=== PATIENT | male | born 1935 | race Caucasian/White ===

== ENCOUNTER 2017-03-30 06:59 | Emergency (ER) | payer MEDICARE, BC ==
[2017-03-30] MEDS ORDERED: RX INFO: IV CONTRAST WAS GIVEN 1 EACH MISC MISCELLANE PRN (07:40)
[2017-03-30] MEDS ORDERED: SODIUM CHLORIDE 0.9% 1,000 ML IV STA (07:40)
[2017-03-30] MEDS ORDERED: SODIUM CHLORIDE 0.9% 500 ML IV STA (07:40)
[2017-03-30] MEDS ORDERED: MORPHINE SULFATE 4 MG/ML SYRINGE IV STA (07:40)
[2017-03-30] MEDS ORDERED: ONDANSETRON 4 MG/2 ML VIAL IVP STA (08:06)
[2017-03-30 08:15] LABS: Basophils % (A) 0 %; Eosinophils # (A) 0.1 k/uL (0-0.7); Eosinophils % (A) 1 %; HCT 43.2 % (39.0-53.0); HGB 14.3 gm/dL (13.0-17.5); Lymphocytes # (A) 1.1 k/uL (1.0-4.8); Lymphocytes % (A) 12 %; MCH 30.8 pg (25.0-35.0); MCHC 33.1 g/dL (31.0-37.0); Mean Platelet Volume 7.8; Monocytes # (A) 0.4 k/uL (0-1.0); Monocytes % (A) 5 %; Neutrophils # (A) 6.9 k/uL (1.3-7.7); Neutrophils % (A) 80 %; Platelet Count 152 k/uL (150-450); RBC 4.64 m/uL (4.30-5.90); RDW 13.5 % (11.5-15.5); WBC 8.6 k/uL (3.8-10.6)
[2017-03-30 08:32] LABS: ALT 62 U/L (21-72); AST 57 U/L (17-59); Albumin 4.1 g/dL (3.5-5.0); Alkaline Phosphatase 77 U/L (38-126); Amylase 56 U/L (30-110); Anion Gap 11 mmol/L; Blood Urea Nitrogen 18 mg/dL (9-20); Calcium 10.3 mg/dL (8.4-10.2); Carbon Dioxide 23 mmol/L (22-30); Chloride 107 mmol/L (98-107); Glucose 193 mg/dL (74-99); Lipase 173 U/L (23-300); Potassium 4.7 mmol/L (3.5-5.1); Sodium 141 mmol/L (137-145); Total Bilirubin 0.5 mg/dL (0.2-1.3); Total Protein 7.4 g/dL (6.3-8.2)
--- NOTE | 2017-03-30 09:22 | ED ---
General Adult HPI - General Chief complaint: Abdominal Pain Stated complaint: abd sharp pain left side Time Seen by Provider: 03/30/17 07:19 Source: patient, family, RN notes reviewed, old records reviewed Mode of arrival: ambulatory Limitations: no limitations - History of Present Illness Initial comments: This is a 41-year-old male to the ER for evaluation. This patient presents for evaluation regards to abdominal pain. Patient has no surgical history, no history of similar abdominal pain. Patient awoke with abdominal pain today lasted about pain sided flank pain radiating to anterior abdomen. Periumbilical area. Patient's mildly nauseous no vomiting no diarrhea no difficulty with bowel movements. Patient denies fever. Patient had no pain last night pain is better now than it was was started - Related Data Home Medications Medication Instructions Recorded Confirmed Aspirin 325 mg PO HS 03/30/17 03/30/17 Insulin Aspart [NovoLOG 20 unit SQ AC-TID 03/30/17 03/30/17 (formulary)] Insulin Detemir [Levemir] 80 unit SQ HS 03/30/17 03/30/17 Lisinopril [Zestril] 20 mg PO DAILY 03/30/17 03/30/17 Multivit-Min/FA/Lycopen/Lutein 1 tab PO DAILY 03/30/17 03/30/17 [Centrum Silver Tablet] Mupirocin 2% Nasal Oint [Bactroban 1 applic EA NOSTRIL BID PRN 03/30/17 03/30/17 2% Nasal Oint] Simvastatin [Zocor] 20 mg PO HS 03/30/17 03/30/17 diphenhydrAMINE [Benadryl] 25 mg PO BID 03/30/17 03/30/17 glipiZIDE [Glucotrol] 10 mg PO AC-BID 03/30/17 03/30/17 metFORMIN HCL 1,000 mg PO BID 03/30/17 03/30/17 Allergies Allergy/AdvReac Type Severity Reaction Status Date / Time No Known Allergies Allergy Verified 03/30/17 08:35 Review of Systems ROS Statement: Those systems with pertinent positive or pertinent negative responses have been documented in the HPI. ROS Other: All systems not noted in ROS Statement are negative. Past Medical History Past Medical History: Diabetes Mellitus, Hypertension History of Any Multi-Drug Resistant Organisms: None Reported Past Surgical History: Orthopedic Surgery Past Psychological History: No Psychological Hx Reported Smoking Status: Never smoker Past Alcohol Use History: None Reported Past Drug Use History: None Reported General Exam Limitations: no limitations General appearance: alert, in no apparent distress Head exam: Present: atraumatic, normocephalic, normal inspection Eye exam: Present: normal appearance, PERRL, EOMI. Absent: scleral icterus, conjunctival injection, periorbital swelling ENT exam: Present: normal exam, mucous membranes moist Neck exam: Present: normal inspection. Absent: tenderness, meningismus, lymphadenopathy Respiratory exam: Present: normal lung sounds bilaterally. Absent: respiratory distress, wheezes, rales, rhonchi, stridor Cardiovascular Exam: Present: regular rate, normal rhythm, normal heart sounds. Absent: systolic murmur, diastolic murmur, rubs, gallop, clicks GI/Abdominal exam: Present: soft, distended, tenderness (LLQ epigasttric), normal bowel sounds. Absent: guarding, rebound, rigid Extremities exam: Present: normal inspection, full ROM, normal capillary refill. Absent: tenderness, pedal edema, joint swelling, calf tenderness Back exam: Present: normal inspection Neurological exam: Present: alert, oriented X3, CN II-XII intact Psychiatric exam: Present: normal affect, normal mood Skin exam: Present: warm, dry, intact, normal color. Absent: rash Course Vital Signs 03/30/17 03/30/17 03/30/17 07:01 08:37 09:14 Temperature 97.3 F L Pulse Rate 83 76 72 Respiratory 18 18 18 Rate Blood Pressure 193/84 180/83 166/74 O2 Sat by Pulse 97 94 L 93 L Oximetry 03/30/17 10:08 Temperature Pulse Rate 69 Respiratory 19 Rate Blood Pressure 161/77 O2 Sat by Pulse 95 Oximetry - Reevaluation(s) Reevaluation #1: 03/30/17 09:30 Patient's this point does have good pain control Reevaluation #2: 03/30/17 10:30 Patient having episodic pain at this time, he does feel better when he first arrived. No significant nausea vomiting Medical Decision Making - Medical Decision Making 81 male with nonspecific abdominal pain. Abdominal wall tenderness. Patient has no pain control. Lab values are normal CT abdomen pelvis is negative and patient can be discharged home - Lab Data Result diagrams: 03/30/17 07:47 03/30/17 07:47 Lab Results 03/30/17 03/30/17 03/30/17 Range/Units 07:47 07:47 07:47 WBC 8.6 (3.8-10.6) k/uL RBC 4.64 (4.30-5.90) m/uL Hgb 14.3 (13.0-17.5) gm/dL Hct 43.2 (39.0-53.0) % MCV 93.0 (80.0-100.0) fL MCH 30.8 (25.0-35.0) pg MCHC 33.1 (31.0-37.0) g/dL RDW 13.5 (11.5-15.5) % Plt Count 152 (150-450) k/uL Neutrophils % 80 % Lymphocytes % 12 % Monocytes % 5 % Eosinophils % 1 % Basophils % 0 % Neutrophils # 6.9 (1.3-7.7) k/uL Lymphocytes # 1.1 (1.0-4.8) k/uL Monocytes # 0.4 (0-1.0) k/uL Eosinophils # 0.1 (0-0.7) k/uL Basophils # 0.0 (0-0.2) k/uL Sodium 141 (137-145) mmol/L Potassium 4.7 (3.5-5.1) mmol/L Chloride 107 (98-107) mmol/L Carbon Dioxide 23 (22-30) mmol/L Anion Gap 11 mmol/L BUN 18 (9-20) mg/dL Creatinine 1.32 H (0.66-1.25) mg/dL Est GFR (MDRD) Af Amer >60 (>60 ml/min/1.73 sqM) Est GFR (MDRD) Non-Af 52 (>60 ml/min/1.73 sqM) Glucose 193 H (74-99) mg/dL Plasma Lactic Acid Eliud 1.8 (0.7-2.0) mmol/L Calcium 10.3 H (8.4-10.2) mg/dL Total Bilirubin 0.5 (0.2-1.3) mg/dL AST 57 (17-59) U/L ALT 62 (21-72) U/L Alkaline Phosphatase 77 (38-126) U/L Troponin I (0.000-0.034) ng/mL Total Protein 7.4 (6.3-8.2) g/dL Albumin 4.1 (3.5-5.0) g/dL Amylase 56 (30-110) U/L Lipase 173 (23-300) U/L Blood Type Blood Type Recheck Antibody Screen Spec Expiration Date 03/30/17 03/30/17 Range/Units 07:47 07:47 WBC (3.8-10.6) k/uL RBC (4.30-5.90) m/uL Hgb (13.0-17.5) gm/dL Hct (39.0-53.0) % MCV (80.0-100.0) fL MCH (25.0-35.0) pg MCHC (31.0-37.0) g/dL RDW (11.5-15.5) % Plt Count (150-450) k/uL Neutrophils % % Lymphocytes % % Monocytes % % Eosinophils % % Basophils % % Neutrophils # (1.3-7.7) k/uL Lymphocytes # (1.0-4.8) k/uL Monocytes # (0-1.0) k/uL Eosinophils # (0-0.7) k/uL Basophils # (0-0.2) k/uL Sodium (137-145) mmol/L Potassium (3.5-5.1) mmol/L Chloride (98-107) mmol/L Carbon Dioxide (22-30) mmol/L Anion Gap mmol/L BUN (9-20) mg/dL Creatinine (0.66-1.25) mg/dL Est GFR (MDRD) Af Amer (>60 ml/min/1.73 sqM) Est GFR (MDRD) Non-Af (>60 ml/min/1.73 sqM) Glucose (74-99) mg/dL Plasma Lactic Acid Eliud (0.7-2.0) mmol/L Calcium (8.4-10.2) mg/dL Total Bilirubin (0.2-1.3) mg/dL AST (17-59) U/L ALT (21-72) U/L Alkaline Phosphatase (38-126) U/L Troponin I <0.012 (0.000-0.034) ng/mL Total Protein (6.3-8.2) g/dL Albumin (3.5-5.0) g/dL Amylase (30-110) U/L Lipase (23-300) U/L Blood Type A Negative Blood Type Recheck A Neg Antibody Screen NEGATIVE Spec Expiration Date 04/02/2017 - 7533 - Radiology Data Radiology results: report reviewed (CT abdomen pelvis is negative for acute disease), image reviewed Disposition Clinical Impression: Abdominal pain Disposition: HOME SELF-CARE Condition: Good Instructions: Abdominal Pain (ED) Referrals: Arjun Moss DO [Primary Care Provider] - 1-2 days
--- NOTE | 2017-03-30 09:25 | CT ---
EXAMINATION TYPE: CT abdomen pelvis w con DATE OF EXAM: 03/30/2017 COMPARISON: NONE INDICATION: Left sided abdominal pain DLP: 2986.4 mGycm, Automated exposure control for dose reduction was used. CONTRAST: 50 mL of Visipaque 320. Study performed without Oral Contrast TECHNIQUE: Axial images were obtained from above the diaphragm to the pubic rami in the axial plane a t 5 mm thick sections. Reconstructed images are reviewed on the computer in the coronal plane. FINDINGS: Limited CT sections are obtained the lung bases. The lung bases are clear. Coronary artery calcific ations present. CT ABDOMEN: Liver: Normal Spleen: Normal Pancreas: Normal Adrenal glands: The adrenal glands are normal. Gallbladder: There is a gallstone within the gallbladder. Kidneys: No masses are evident. No hydronephrosis is present. There is a 1.8 cm cyst measuring 14 H [place] units posterior mid left kidney. A 1.5 cm cyst on the posterior lateral inferior left kidne y measuring 13 Hounsfield units. There is a cyst like area measuring 1.3 cm on the mid anterior later al right kidney measuring 18 Hounsfield units. Borders are indistinct and this cannot be classified a s a simple cyst. Static cyst within the posterior right upper pole measuring 3.2 cm and 20 Hounsfield units. There is a 2.1 cm hypodensity measuring 50 Hounsfield units posterior lateral medial inferior pole ri ght kidney. Mass is not excluded. Additional evaluation with ultrasound is recommended. This area may be developing from 2013. Delayed images were obtained through the kidneys, which remain unremarkabl e. Aorta: Vascular calcification is within the aorta. Inferior vena cava: Normal. CT PELVIS: Loops of bowel within the abdomen and pelvis are normal. Diverticular changes are through the sig moid colon. Studies without oral contrast limiting the evaluation. Appendix: Normal as visualized. Urinary bladder: Normal. Genitourinary structures: Prostate is prominent. Calcifications are present. Osseous structures: No suspicious lytic or sclerotic lesions. IMPRESSIONS: 1. Multiple bilateral renal cysts. Some of these cannot be classified as simple cysts. Consider stefany tional evaluation with retroperitoneal ultrasound. 2. Possible mass which may be developing from 2014 inferior medial right kidney. Additional workup wi th ultrasound is recommended. 3. Cholelithiasis.
[2017-03-30] MEDS ORDERED: ACETAMINOPHEN IV (For NPO) 1,000 MG in EMPTY BAG 1 BAG IVPB STA (10:29)
[2017-03-30] MEDS ORDERED: HYDROmorphone 0.5 MG/0.5 ML SYRINGE IVP STA (10:29)
[2017-03-30 10:34] LABS: Appearance,Urine Clear (Clear); Bilirubin,Urine Negative (Negative); Blood,Urine Small (Negative); Color,Urine Yellow; Glucose,Urine (UA) Negative (Negative); Ketones,Urine Negative (Negative); Leukocyte Esterase,Urine Negative (Negative); Mucus,Urine Rare /hpf; Nitrite,Urine Negative (Negative); PH, Urine 5.5 (5.0-8.0); Protein,Urine Trace (Negative); RBC,Urine 8 /hpf (0-5); Urobilinogen,Urine <2.0 mg/dL (<2.0); WBC,Urine 5 /hpf (0-5)
[2017-03-30 12:03] VITALS: BP 162/73; PULSE 73; RESP 18; TEMP 98.5
== END 2017-03-30 12:03 | disposition home or self-care (01) ==
LOC: EC 06:59
DX: R10.33 Periumbilical pain (principal); R14.0 Abdominal distension (gaseous); R11.0 Nausea; I10 Essential (primary) hypertension; E11.9 Type 2 diabetes mellitus without complications; Z79.4 Long term (current) use of insulin; Z79.82 Long term (current) use of aspirin; Z79.899 Other long term (current) drug therapy
CPT/HCPCS: 36415; 86900; 86901; 80053; 82150; 83605; 83690; 84484; 85025; 86850; 81001; 87070; 87086; 74177; 99284; 96374; 96375 ×3; 96361 ×4; J2270; Q9967; J2405; J0131; J1170

== ENCOUNTER → 2017-04-04 | Outpatient (CLI) | payer MEDICARE, BC ==
[2017-04-04 14:32] LABS: INR 1.1 (<1.2); Partial Thromboplastin Time 24.1 sec (22.0-30.0); Prothrombin Time 10.4 sec (9.0-12.0)
== END | disposition home or self-care (01) ==
LOC: LABWHC1 13:50
PROVIDERS: ATTEND Orthopaedic Surgery
DX: Z01.812 Encounter for preprocedural laboratory examination (principal); Z79.01 Long term (current) use of anticoagulants
CPT/HCPCS: 36415; 85610; 85730; 86850; 86900; 86901

== ENCOUNTER 2017-04-09 05:41 | Inpatient (IN) | payer MEDICARE, BC ==
[2017-04-03 11:24] VITALS: BMI 36.6
--- NOTE | 2017-04-08 15:47 | HP ---
HISTORY AND PHYSICAL Surgery scheduled for 03/25/2017 Zelalem Jeffries is a 81-year-old patient seen with symptomatic right hip osteoarthritis. After having treatment options discussed, he elected to proceed with direct anterior right total hip arthroplasty. Consent regarding procedure was obtained. Medical clearance provided by Dr. Arjun Moss. PAST MEDICAL HISTORY: [id number] diabetes, hypertension, hyperlipidemia. PAST SURGICAL HISTORY: Bilateral total knee arthroplasty, left shoulder arthroscopy. MEDICATIONS: Glipizide, lisinopril, metformin, NovoLog, simvastatin. ALLERGIES: None reported. SOCIAL HISTORY: Patient denies current tobacco use. PHYSICAL EXAMINATION: Evaluation right hip: There is very limited range of motion with severe pain, diffuse tenderness. Positive hip impingement sign. Straight leg raise is negative. Distal neurovascular exam is intact. RADIOGRAPHS: Radiographs of the right hip revealed moderate to severe osteoarthritis. IMPRESSION: 1. Right hip osteoarthritis. 2. Insulin-dependent diabetes. 3. Hypertension. 4. Hyperlipidemia. PLAN: Direct anterior right total hip arthroplasty. MMODL / IJN: [id number] /
[~2017-04-09 05:41] MED LIST: ACETAMINOPHEN TAB 500 MG TAB PO ONE; DEXAMETHASONE SOD PHOSPHATE 10 MG/ML 1 ML VIAL IV ONE; HYDROmorphone 0.5 MG/0.5 ML SYRINGE IVP PRN; MELOXICAM 7.5 MG TAB PO ONE; ONDANSETRON 4 MG/2 ML VIAL IVP ONE; TRANEXAMIC ACID 1,000 MG in SODIUM CHLORIDE 0.9% 50 ML IVPB ONE
[2017-04-09] MEDS ORDERED: LIDOCAINE 1% 20 ML VIAL (10MG/ML) FOR IV START INTRADERMA ONE (06:35)
[2017-04-09] MEDS: LACTATED RINGERS 1,000 ML IV SCH (06:36)
[2017-04-09 06:42] LABS: Glucose,Whole Blood 90 mg/dL (75-99)
[2017-04-09] MEDS ORDERED: SODIUM CHLORIDE 0.9% 100 ML BAG ONE (07:26)
[2017-04-09] MEDS ORDERED: ePHEDrine SULFATE/0.9% NACL/PF 50 MG/5 ML SYRINGE IV ONE (07:26)
[2017-04-09] MEDS ORDERED: PROPOFOL 10 MG/ML 50 ML VIAL IV ONE (07:26)
[2017-04-09] MEDS ORDERED: TRANEXAMIC ACID 1,000 MG/10 ML VIAL ONE (07:26)
[2017-04-09] MEDS ORDERED: fentaNYL (PF) 50 MCG/ML 2 ML AMP ONE (07:26)
[2017-04-09] MEDS ORDERED: MIDAZOLAM 2 MG/2 ML VIAL ONE (07:26)
[2017-04-09] MEDS ORDERED: ROPIVACAINE 246.25 MG, EPINEPHrine 0.5 MG, KETOROLAC 30 MG, cloNIDine HCL/PF 80 MCG, WA... MISCELLANE ONE ×5 (07:54)
[2017-04-09] MEDS ORDERED: ceFAZolin 3,000 MG in SODIUM CHLORIDE 0.9% IRRIGATIO 3,000 ML IRRIGATION ONE (08:04)
[2017-04-09] MEDS ORDERED: LACTATED RINGERS 1,000 ML IV ONE (08:25)
[2017-04-09] MEDS ORDERED: ONDANSETRON 4 MG/2 ML VIAL IVP PRN (09:46)
[2017-04-09] MEDS ORDERED: HYDROcodone/APAP 7.5-325MG 1 EACH TAB PO PRN ×2 (09:46)
[2017-04-09] MEDS ORDERED: NALOXONE 0.4 MG/ML 1 ML VIAL IV PRN (09:46)
[2017-04-09] MEDS ORDERED: HYDROmorphone 0.5 MG/0.5 ML SYRINGE IVP PRN ×3 (09:46)
--- NOTE | 2017-04-09 09:46 | P.OP ---
Date of Procedure: 04/09/17 Preoperative Diagnosis: Right hip osteoarthritis Postoperative Diagnosis: Right hip osteoarthritis Procedure(s) Performed: Direct anterior right total hip arthroplasty Implants: 1. Depuy Corail KLA size 16 high offset collared press-fit femoral stem 2. Depuy pinnacle press-fit acetabular shell 62 mm 3. Depuy pinnacle polyethylene acetabular liner +4 neutral 36 mm ID 62 mm OD 4. Biolox delta ceramic femoral head +1.5 36 mm Anesthesia: local, spinal Surgeon: Dao Lassiter Compositor Apprentice #1: Shreyas Ugarte Estimated Blood Loss (ml): 200 Pathology: other (Femoral head) Condition: stable Disposition: PACU Indications for Procedure: 81-year-old patient seen with symptomatic right hip osteoarthritis. After treatment options were discussed, he elected to proceed with total hip arthroplasty. Operative Findings: see description of procedure Description of Procedure: The patient was taken to the operative suite. Patient underwent a spinal anesthetic by the department of anesthesia. Patient was then transferred to the [place] table. Patient was given preoperative IV antibiotics and TXA. Both lower extremities were placed in standard leg spars. The hip was then prepped and draped in the normal sterile orthopedic fashion. A standard anterior incision was made beginning 3 cm lateral and 1 cm distal to the ASIS extending 10 cm. Dissection was then carried down through the subcutaneous soft tissues down to the fascia overlying the tensor fascia griselda. An incision was now made through the fascia. Careful dissection was taken down exposing the tensor fascia griselda muscle. A Cobra retractor was now placed along the medial femoral neck and a second one along the lateral femoral neck. The venous circumflex vessels were now identified, cauterized and clipped. We identified the anterior hip capsule. An incision was made through the hip capsule along the lateral border. Tag sutures were then placed along the anterior capsule and lateral capsule. We then performed a capsulotomy. Retractors were now placed around the femoral neck itself. A Cobra retractor was now placed along the anterior acetabulum. Good exposure was now noted of the femoral head/neck complex. Residual labrum was debrided out. We placed the extremity into 3 turns of fine traction. We were then able to introduce a skid in between the femoral head and acetabulum. A placed a awl into the femoral head. We took 2 turns of traction off the extremity. Rotation was now released. The femoral head was then dislocated without difficulty. Additional releasing was performed of the capsule. The head was then reduced. All traction was released. A femoral neck cut was now made with a sagittal saw. It was completed with an osteotome at the lateral neck area. The femoral head was now removed without difficulty. There was advanced arthritis of both the femoral head and acetabulum. The extremity was now rotated to 60 of external rotation. It was locked in position. Residual labrum was now debrided out. Serial reaming was performed of the acetabulum. Once we reached the appropriate size and a trial was position and fit nicely. The appropriate size was now chosen opened and made available. The wound was irrigated with pulse lavage mechanical irrigation. It was introduced into the acetabulum without difficulty. The C-arm/fluoroscopy was now brought into the operative field. We made sure we had a true AP pelvic view. We now under direct C-arm/ fluoroscopy introduced into the acetabular component with appropriate version and inclination. It was well seated and stable. The C-arm was pulled back. An appropriate liner was introduced and clicked into position. It was felt to be stable. At this point retractors were removed. The extremity was now placed into 120 external rotation with no traction. The leg was now dropped to the ground and adducted. Appropriate retractors were now positioned along the proximal femur. We also placed our femoral look into position. Additional capsular releasing was performed to gain access to the proximal femur. We now used a box osteotome. A canal finder was now utilized. Serial broaching was now performed until we reached the appropriate size with good overall rotational stability. Appropriate calcar planing was performed. A trial head/ neck was placed into position. The hip was now reduced. The C-arm/fluoroscopy was brought back into the operative field. A spot film was obtained of the nonoperative hip. A spot film was obtained of the trial components. Overlays were performed, we noted good overall alignment and positioning for determining leg length. The C-arm/fluoroscopy was pulled back. Retractors were repositioned and the hip was dislocated. The leg was again taken down to the ground and adducted. Appropriate retractors were repositioned as well as the femoral hook. All trial components were removed. The femoral implant was opened along with the femoral head. The wound was irrigated with pulse lavage mechanical irrigation. The deep soft tissues were infiltrated local analgesic. The femoral implant was introduced with good purchase and fixation noted. The femoral head was introduced with good positioning and fixation noted. Retractors were now removed. The hip was now reduced. There appeared be good positioning of the hip. This was confirmed on fluoroscopy and spot films were obtained to document that. The deep soft tissues were again infiltrated with local analgesic. Bipolar cautery had been utilized intermittently through the procedure for hemostasis. The wound was irrigated copiously with pulse lavage mechanical irrigation. The fascia was repaired with Vicryl suture. The subcutaneous soft tissues were repaired in layers with Vicryl suture. The skin was approximated with pernio/Dermabond. Sterile dressings were applied. Patient was then awakened, transferred to a bed and taken to recovery in stable condition. Cecilio SAINI assisted with the procedure.
[2017-04-09 09:59] LABS: Glucose,Whole Blood 136 mg/dL (75-99)
--- NOTE | 2017-04-09 10:33 | FL ---
EXAMINATION TYPE: FL guidance operating room, XR Hip Limited RT DATE OF EXAM: 04/09/2017 CLINICAL HISTORY: Right anterior hip pain TECHNIQUE: Fluoroscopy. COMPARISON: None. FINDINGS/IMPRESSION: Fluoroscopic guidance was provided during procedure performed by Dr. Lassiter. A total of 38 seconds of fluoroscopic time was utilized during the procedure and 1 spot images was acquired during a right hip arthroplasty.
[2017-04-09] MEDS: traMADol 50 MG TAB PO SCH ×3 (12:57→22:35)
[2017-04-09] MEDS: SODIUM CHLORIDE 0.9% 1,000 ML IV SCH (17:50)
[2017-04-09] MEDS ORDERED: SENNOSIDES-DOCUSATE SODIUM 1 EACH TAB PO SCH (21:00)
[2017-04-09] MEDS ORDERED: ATORVASTATIN 10 MG TAB PO SCH (21:00)
[2017-04-09] MEDS ORDERED: INSULIN DETEMIR 100 UNIT/ML 10 ML VIAL SQ SCH (21:00)
[2017-04-09] MEDS: LISINOPRIL 20 MG TAB PO SCH (21:44)
[2017-04-09] MEDS: metFORMIN 500 MG TAB PO SCH (21:44)
[2017-04-09] MEDS: diphenhydrAMINE 25 MG CAP PO SCH (21:47)
[2017-04-10] MEDS: LACTATED RINGERS 1,000 ML IV SCH (02:57)
[2017-04-10] MEDS: SODIUM CHLORIDE 0.9% 1,000 ML IV SCH (04:14)
[2017-04-10 07:07] VITALS: BP 163/68; PULSE 82; RESP 18; TEMP 97.6
[2017-04-10 07:30] LABS: Basophils % (A) 0 %; Eosinophils # (A) 0.1 k/uL (0-0.7); Eosinophils % (A) 1 %; HCT 34.2 % (39.0-53.0); Lymphocytes # (A) 1.4 k/uL (1.0-4.8); Lymphocytes % (A) 14 %; MCH 30.1 pg (25.0-35.0); MCHC 32.5 g/dL (31.0-37.0); MCV 92.6 fL (80.0-100.0); Mean Platelet Volume 7.2; Monocytes # (A) 0.6 k/uL (0-1.0); Monocytes % (A) 6 %; Neutrophils # (A) 7.5 k/uL (1.3-7.7); Neutrophils % (A) 77 %; Platelet Count 202 k/uL (150-450); RBC 3.69 m/uL (4.30-5.90); RDW 12.6 % (11.5-15.5); WBC 9.8 k/uL (3.8-10.6)
[2017-04-10] MEDS ORDERED: glipiZIDE 10 MG TAB PO SCH (07:30)
[2017-04-10] MEDS: INSULIN ASPART 100 UNIT/ML 1 ML 10 ML VIAL SQ SCH ×2 (07:45→12:08)
[2017-04-10 07:46] LABS: Glucose,Whole Blood 79 mg/dL (75-99)
[2017-04-10] MEDS: metFORMIN 500 MG TAB PO SCH (07:46)
[2017-04-10] MEDS: LISINOPRIL 20 MG TAB PO SCH (07:46)
[2017-04-10 07:49] LABS: HGB 11.1 gm/dL (13.0-17.5)
[2017-04-10] MEDS: traMADol 50 MG TAB PO SCH ×2 (07:49→12:11)
[2017-04-10] MEDS: diphenhydrAMINE 25 MG CAP PO SCH (07:50)
[2017-04-10] MEDS ORDERED: ENOXAPARIN 40 MG/0.4 ML SYRINGE SQ SCH (09:00)
[2017-04-10] MEDS ORDERED: MELOXICAM 7.5 MG TAB PO SCH (09:00)
[2017-04-10] MEDS ORDERED: FAMOTIDINE 20 MG TAB PO SCH (09:00)
[2017-04-10 11:47] LABS: Glucose,Whole Blood 80 mg/dL (75-99)
--- NOTE | 2017-04-10 11:52 | P.PN ---
Subjective Progress Note Date: 04/10/17 Principal diagnosis: Status post right total hip arthroplasty Patient is seen today resting in his hospital chair, he appears comfortable. Patient's ambulating well with therapy. Urinary catheters been discontinued. He denies any headaches, lightheadedness, chest pain or shortness of breath. Objective - Vital Signs Vital signs: Vital Signs Temp 97.6 F 04/10/17 07:06 Pulse 82 04/10/17 07:06 Resp 18 04/10/17 07:08 BP 163/68 04/10/17 07:06 Pulse Ox 96 04/10/17 07:06 Intake & Output 04/09/17 04/10/17 04/10/17 18:59 06:59 18:59 Intake Total 1501 Output Total 200 200 Balance 1301 -200 Weight 129.274 kg 129.274 kg Intake: IV 1351 Intake, IV Titration 150 Amount Sodium Chloride 0.9% 1, 150 000 ml @ 50 mls/hr IV . Q20H RASHAD Rx#:[id number] Output: Urine 200 Estimated Blood Loss 200 Other: Voiding Method Urinal Urinal Urinal # Voids 1 1 # Bowel Movements 1 - Exam Right lower extremity: Incision is clean, dry, and intact. The prineo tape is in good condition. There is minimal soft tissue swelling and ecchymosis surrounding the medial and lateral aspects of the incision. Calf is soft, no tenderness with palpation. Plantar flexion, dorsiflexion, EHL, FHL are intact. Sensory exam to light touch throughout the extremity is intact, dorsal pedis pulses 2+. - Labs CBC & Chem 7: 04/10/17 06:34 Labs: Abnormal Lab Results - Last 24 Hours (Table) 04/10/17 Range/Units 06:34 RBC 3.69 L (4.30-5.90) m/uL Hgb 11.1 L D (13.0-17.5) gm/dL Hct 34.2 L (39.0-53.0) % Assessment and Plan Plan: Assessment: 1. Postop day #1 status post right total hip arthroplasty Plan: 1. Pain control, we'll discharge home on oral medication 2. Home therapy and nursing after discharge 3. Wound care instructions were discussed with patient 4. GI and DVT prophylaxis, aspirin 325 mg twice a day 5. Medical recommendations 6. Discharge planning: Patient will be likely discharged home today Time with Patient: Less than 30
--- NOTE | 2017-04-10 11:57 | P.DS ---
Providers Date of admission: 04/09/17 05:41 Expected date of discharge: 04/10/17 Attending physician: Dao Lassiter Consults: 04/09/17 09:46 Consult Physician Routine Consulting Provider: Arjun Moss Reason/Comments: Medical management Do you want consulting provider notified?: Yes Primary care physician: Arjun Moss [facility] Course: Date of admission: 04/09/2017 Date of discharge: 04/10/2017 Admission diagnosis: Status post right total hip arthroplasty Discharge diagnosis: Same Attending physician: Dr. Lassiter Surgical procedures: Right total hip arthroplasty Brief history: Patient is a 81-year-old male with a history of progressive primary right hip osteoarthritis. At this point patient has failed conservative treatment measures and has opted to proceed with a elective right total hip arthroplasty. Hospital course: Details of patient's surgery can be found in operative report. Patient tolerated the procedure well and was subsequently transported to orthopedic floor. Patient's orthopeidc and medical care was provided daily. Patient had daily laboratory tests performed for evaluation of overall blood counts. Patient had daily physical therapy to include strengthening range of motion as well as education with walker ambulation. Patient was treated with Lovenox for their postoperative DVT prophylaxis during their inpatient stay. Patient was noted to have a relatively uneventful postoperative course. Patient reported satisfactory pain control with oral pain medications by postoperative day 0. Patient showed satisfactory progress with physical therapy. Patient moved steadily through the program and had no difficulty meeting the goals by postoperative day 1. Given patient's otherwise satisfactory course and having met physical therapy goals, plan is to discharge patient home on postoperative day 1. Discharge condition/disposition: Patient will be discharged home in stable condition. Discharge medications: Instructions are given on resumption of patient's normal daily medications per primary care recommendation, in addition patient will be prescribed tramadol 50 mg, aspirin 325 mg, Ochope[place] 5 mg/325 mg. Discharge instructions: 1. Wound care and infection precautions, keep incision dry and covered while showering, no lotions, creams, moisturizers. No soaking, tubs, pools, hottubs. Do not scrub over the incision. 2. Weight-bear as tolerated with walker / cane until follow-up. 3. Ice and elevate when necessary. Do not exceed 20 minutes per hour with ice pack. 4. Utilize compression sleeve until seen at first follow up appointment. 5. Visiting nursing care. 6. Home physical therapy. 7. Pain meds and anticoagulants per prescription. 8. Pain medication has potential to cause constipation. Increase oral fluid and fiber intake. Contact primary care provider if you have not had a bowel movement within 48 hours after discharge 9. No anti-inflammatory medication until discussed at first post operative visit, this including Motrin, Aleve, Mobic, Diclofenac. 10. Follow up in office at 2 weeks postop with Cecilio Ugarte PA-C 11. Follow up with your primary care doctor 7-10 days after discharge. 12. Contact [facility] with any questions, . Procedures: Right total hip arthroplasty Patient Condition at Discharge: Good Plan - Discharge Summary Discharge Rx Participant: Yes New Discharge Prescriptions: New Aspirin 325 mg PO BID #60 tab Hydrocodone/Acetaminophen [[place] 5-325] 1 each PO Q6HR PRN #30 tab PRN Reason: Pain traMADol HCl [Ultram] 50 mg PO Q6H PRN #30 tab PRN Reason: Pain No Action Simvastatin [Zocor] 20 mg PO HS Insulin Detemir [Levemir] 80 unit SQ HS diphenhydrAMINE [Benadryl] 25 mg PO BID Insulin Aspart [NovoLOG (formulary)] 20 unit SQ AC-TID metFORMIN HCL 1,000 mg PO BID glipiZIDE [Glucotrol] 10 mg PO AC-BID Lisinopril [Zestril] 20 mg PO DAILY Multivit-Min/FA/Lycopen/Lutein [Centrum Silver Tablet] 1 tab PO DAILY Discharge Medication List Insulin Aspart [NovoLOG (formulary)] 20 unit SQ AC-TID 03/30/17 [History] Insulin Detemir [Levemir] 80 unit SQ HS 03/30/17 [History] Lisinopril [Zestril] 20 mg PO DAILY 03/30/17 [History] Multivit-Min/FA/Lycopen/Lutein [Centrum Silver Tablet] 1 tab PO DAILY 03/30/17 [ History] Simvastatin [Zocor] 20 mg PO HS 03/30/17 [History] diphenhydrAMINE [Benadryl] 25 mg PO BID 03/30/17 [History] glipiZIDE [Glucotrol] 10 mg PO AC-BID 03/30/17 [History] metFORMIN HCL 1,000 mg PO BID 03/30/17 [History] Aspirin 325 mg PO BID #60 tab 04/10/17 [Rx] Hydrocodone/Acetaminophen [[place] 5-325] 1 each PO Q6HR PRN #30 tab 04/10/17 [Rx] traMADol HCl [Ultram] 50 mg PO Q6H PRN #30 tab 04/10/17 [Rx] Follow up Appointment(s)/Referral(s): [facility], [NON-STAFF] - Shreyas Ugarte PAC [PHYSICIAN LIQUOR ESTABLISHMENT MANAGER] - 2 Weeks Activity/Diet/Wound Care/Special Instructions: Orthopedic Discharge Instructions: 1. Wound care and infection precautions, keep incision dry and covered while showering, no lotions, creams, moisturizers. No soaking, pools, hot tubs. Do not scrub over incision. 2. Weight-bear as tolerated with walker / cane until follow-up. 3. Ice and elevate when necessary. Do not exceed 20 minutes per hour with ice pack. 4. Utilize compression sleeve until seen at first follow up appointment. 5. Visiting nursing care. 6. Home physical therapy. 7. Pain meds and anticoagulants per prescription. 8. Pain medication has potential to cause constipation. Increase oral fluid and fiber intake. Contact primary care provider if you have not had a bowel movement within 48 hours after discharge. 9. No anti-inflammatory medication until discussed at first post operative visit, this including Motrin, Aleve, Mobic, Diclofenac 10. Follow up in office at 2 weeks postop with Cecilio Ugarte PA-C 11. Follow up with your primary care doctor 7-10 days after discharge. 12. Contact [facility] with any questions, . Discharge Disposition: HOME WITH HOME HEALTH SERVICES
== END 2017-04-10 14:22 | disposition home health service (06) | DRG 470 ==
LOC: 2ORMAIN 05:41 → 3SUR 09:40
PROVIDERS: ADMIT Orthopaedic Surgery; ATTEND Orthopaedic Surgery
PROC: 0SR904A Replacement of Right Hip Joint with Ceramic on Polyethylene Synthetic Substitute, Uncemented, Open Approach (ICD-10-PCS; principal; 2017-04-09 07:30)
DX: M16.11 Unilateral primary osteoarthritis, right hip (principal); E11.9 Type 2 diabetes mellitus without complications; E78.5 Hyperlipidemia, unspecified; I10 Essential (primary) hypertension; Z79.4 Long term (current) use of insulin; Z79.899 Other long term (current) drug therapy; Z96.653 Presence of artificial knee joint, bilateral; Z87.891 Personal history of nicotine dependence
CPT/HCPCS: 73501; 85025; 86850; 86900; 86901; 88300

== ENCOUNTER → 2017-04-13 | Outpatient (CLI) | payer MEDICARE, BC ==
--- NOTE | 2017-04-14 08:21 | US ---
EXAMINATION TYPE: US kidneys/renal and bladder DATE OF EXAM: 04/13/2017 COMPARISON: CT 2018 CLINICAL HISTORY: N28.1 RENAL CYSTS; see recent CT; post right hip replacement 04/09/2017. EXAM MEASUREMENTS: Right Kidney: 12.7 x 6.8 x 5.7 cm Left Kidney: 12.0 x 6.5 x 6.9 cm Post Void Residual Volume: 288.2 mL Right Kidney: multiple renal cysts with largest simple cyst at superior pole = 3.1 x 3.6 x 2.7cm, sma ller renal cysts appear simple but may be too small to characterize; multiple small calcifications th roughout kidney with largest at inferolateral cortex = 0.5 x 0.3 x 0.2cm . Left Kidney: mild hydronephrosis; multiple renal cysts with largest simple cyst at mid pole = 1.5 x 1 .6 x 1.6cm; superior cortical cyst = 1.4 x 1.6 x 1.3cm and may have wall calcification; calcified wal ls not identified on the comparison CT. Multiple renal calcifications noted mid pole especially with largest cluster = 0.4 x 0.3 x 0.2cm. Bladder: wnl Bilateral Jets seen: Yes Normal Post Void Residual: abnormal post void as is > 50ml. Post void volume is 288 mL. IMPRESSION: There is a cyst with abnormal wall in the superior left kidney warranting follow-up ultrasound in [address]. 2. Mild left hydronephrosis. 3. Left renal stones at the cortical medullary junction. These appear to be nonobstructing.
== END | disposition home or self-care (01) ==
LOC: RADUSWWP 15:31
PROVIDERS: ATTEND Family Medicine
DX: N28.1 Cyst of kidney, acquired (principal); N13.2 Hydronephrosis with renal and ureteral calculous obstruction
CPT/HCPCS: 76770

== ENCOUNTER 2017-05-15 15:52 | Observation (INO) | payer MEDICARE, BC ==
--- NOTE | 2017-05-15 16:07 | ED ---
General Adult HPI - General Stated complaint: RT HIP PAIN Time Seen by Provider: 05/15/17 16:07 - History of Present Illness Initial comments: Zelalem Jeffries is a 81-year-old male who presents to the emergency department via EMS for evaluation of right hip pain. Patient reports that he had an elective right hip replacement approximately 5 weeks ago, he been doing well in the postoperative period. He states that today he was standing on his porch, he felt his hip pop and fell to the ground his head, he did not lose consciousness. He immediately experienced pain in his right hip, EMS was contacted. They found the patient laying on his porch he had a shortened and internally rotated right leg, he was given 100 g of fentanyl and transported to the ER for further evaluation. Patient complains only of pain in his right hip, he has normal sensation in his right leg and foot. Full range of motion of his toes and ankle. - Related Data Home Medications Medication Instructions Recorded Confirmed Insulin Aspart [NovoLOG 22 unit SQ AC-TID 03/30/17 05/15/17 (formulary)] Insulin Detemir [Levemir] 80 unit SQ HS 03/30/17 05/15/17 Lisinopril [Zestril] 20 mg PO DAILY 03/30/17 05/15/17 Multivit-Min/FA/Lycopen/Lutein 1 tab PO DAILY 03/30/17 05/15/17 [Centrum Silver Tablet] Simvastatin [Zocor] 20 mg PO HS 03/30/17 05/15/17 diphenhydrAMINE [Benadryl] 25 mg PO BID 03/30/17 05/15/17 glipiZIDE [Glucotrol] 10 mg PO AC-BID 03/30/17 05/15/17 metFORMIN HCL 1,000 mg PO BID 03/30/17 05/15/17 Aspirin 325 mg PO HS 05/15/17 05/15/17 Ibuprofen [Motrin Ib] 200 mg PO BID PRN 05/15/17 05/15/17 Mupirocin 2% Nasal Oint [Bactroban 1 applic NASAL DAILY 05/15/17 05/15/17 2% Nasal Oint] Allergies Allergy/AdvReac Type Severity Reaction Status Date / Time No Known Allergies Allergy Verified 05/15/17 16:42 Review of Systems ROS Statement: Those systems with pertinent positive or pertinent negative responses have been documented in the HPI. ROS Other: All systems not noted in ROS Statement are negative. Past Medical History Past Medical History: Diabetes Mellitus, Hypertension Additional Past Medical History / Comment(s): recent EC for abdominal pain- tests neg, heart murmer, hx ulcer, hx skin cancer History of Any Multi-Drug Resistant Organisms: None Reported Past Surgical History: Orthopedic Surgery Additional Past Surgical History / Comment(s): rt knee replacement x 2, left knee replacement, left shoulder surgery, skin cancer removed from nose with skin graft Past Anesthesia/Blood Transfusion Reactions: No Reported Reaction Past Psychological History: No Psychological Hx Reported Smoking Status: Never smoker Past Alcohol Use History: None Reported Additional Past Alcohol Use History / Comment(s): quit smoking 25 yrs ago, smoked for 40 yrs, 1 PPD Past Drug Use History: None Reported - Past Family History Mother Family Medical History: No Reported History General Exam General appearance: alert, other (Appears uncomfortable) Head exam: Present: atraumatic, normocephalic, normal inspection Eye exam: Present: normal appearance, PERRL, EOMI. Absent: scleral icterus, conjunctival injection, periorbital swelling ENT exam: Present: normal exam, mucous membranes moist Neck exam: Present: normal inspection. Absent: tenderness, meningismus, lymphadenopathy Respiratory exam: Absent: respiratory distress Cardiovascular Exam: Present: regular rate GI/Abdominal exam: Present: soft. Absent: distended Rectal exam: Present: deferred Right Hip exam: Present: tenderness, swelling, deformity, dislocation. Absent: full ROM Upper Leg exam: Present: tenderness Knee exam: Present: full knee extension Lower Leg exam: Absent: tenderness, swelling Ankle exam: Present: normal inspection, full ROM Foot/Toe exam: Present: normal inspection, full ROM Neurovascular tendon exam: Present: no vascular compromise. Absent: pulse deficit, abnormal cap refill, sensory deficit, extremity cold to touch, pallor, foot drop Neurological exam: Present: alert, oriented X3 Psychiatric exam: Present: normal affect, normal mood Skin exam: Present: warm, dry Course Vital Signs 05/15/17 05/15/17 05/15/17 16:04 17:56 18:39 Temperature 98.6 F Pulse Rate 100 108 H 109 H Respiratory 20 20 18 Rate Blood Pressure 132/74 162/85 205/94 O2 Sat by Pulse 99 96 Oximetry 05/15/17 05/15/17 05/15/17 18:45 18:50 18:55 Temperature Pulse Rate 99 104 H 108 H Respiratory 15 18 16 Rate Blood Pressure 179/86 154/70 140/66 O2 Sat by Pulse 95 97 96 Oximetry Procedures - Procedural Sedation Procedural Sedation Start Time: 18:42 Indications: fracture/dislocation reduction Mallampati Airway Score: 3 Preparation: patient monitor applied, pulse oximeter, capnometry used, supplemental O2 applied, reversal agents at bedside, suction/airway equipment at bedside, IV secured IV Propofol Dose (mgs): 160 Complications: none Patient Tolerated Procedure: well Medical Decision Making - Medical Decision Making Patient was seen and evaluated, history was obtained from the patient, EMS and medical record Patient had a prosthetic hip on April 09 X-rays were ordered X-rays reveal a prosthetic hip dislocation - orthopedic surgery was paged Patient with persistent pain in the right hip, additional dose of IV fentanyl was ordered Patient care was discussed with Orthopedic surgery, they recommend conscious sedation in the ER they will be at bedside for reduction Dr. Corral and Cecilio SAINI at bedside Patient consciously sedated with 160 g of propofol -tolerated sedation well Dislocation reduction was successful by Dr. Corral Patient awake, answering questions, speaking clearly, at bedside, postreduction x-ray confirms successful reduction Dr. Corral accepts the patient to his service for observation for pain management with the plan to fit for a brace for the leg tomorrow Observation orders placed Disposition Clinical Impression: Posterior dislocation of hip, Dislocation of hip joint prosthesis Disposition: ADMITTED IP TO THIS [facility] Condition: Good Referrals: Arujn Moss DO [Primary Care Provider] - 1-2 days Time of Disposition: 18:56
[2017-05-15] MEDS ORDERED: fentaNYL (PF) 50 MCG/ML 2 ML AMP IV STA (17:39)
--- NOTE | 2017-05-15 18:02 | XR ---
EXAMINATION TYPE: XR knee complete RT DATE OF EXAM: 05/15/2017 CLINICAL HISTORY: Generalized pain TECHNIQUE: Three views of the right knee are obtained. COMPARISON: None. FINDINGS: There is no acute fracture/dislocation evident in right knee. Right knee arthroplasty main tains normal alignment with heterotopic ossification is seen predominantly posteriorly. Calcification s within the quadriceps musculature likely from prior injury. No evidence of periprosthetic loosening or lucency. The overlying soft tissue appears unremarkable. IMPRESSION: There is no acute fracture or malalignment in the right knee. No evidence of hardware fr acture.
--- NOTE | 2017-05-15 18:03 | XR ---
EXAMINATION TYPE: XR Hip RT and AP Pelvis DATE OF EXAM: 05/15/2017 COMPARISON: NONE HISTORY: Right hip pain and deformity TECHNIQUE: A single AP view of the pelvis is obtained. Two views of the right hip are obtained. FINDINGS: There is no acute fracture of the pelvis. The sacroiliac joints appear symmetric and unrem arkable. The overlying soft tissue appears unremarkable. Two views of right hip show no acute fracture. Cephalad and slightly posterior dislocation of the rig ht hip prosthesis is noted. No focal lytic or sclerotic lesion seen in the proximal right femur. The overlying soft tissue is unremarkable. Moderate degenerative changes of the lumbosacral junction ar e seen as well as mild/moderate left femoral acetabular arthropathy. IMPRESSION: Cephalad and slightly posterior dislocation of the right hip prosthesis.
[2017-05-15] MEDS ORDERED: SODIUM CHLORIDE 0.9% 1,000 ML IV STA (18:21)
[2017-05-15] MEDS ORDERED: PROPOFOL 10 MG/ML 20 ML VIAL IV STA (18:21)
[2017-05-15] MEDS ORDERED: ONDANSETRON 4 MG/2 ML VIAL IVP STA (18:21)
--- NOTE | 2017-05-15 18:44 | P.CNOR ---
History of Present Illness - [facility] Consult date: 05/15/17 Consult reason: other History of present illness: This is a 81-year-old male who presented to [facility] [place] on after injuring his right hip today at home. [place], was walking up his porch, felt his hip gave out and he fell to the ground. He was unable to put any weight on the leg. Patient was brought to the hospital by EMS. Upon arrival, imaging test demonstrated a dislocation of the periprosthetic right hip. No acute fractures are noted of either the hip or knee joint on the right side. Patient has a recent right total hip arthroplasty by Dr. Lassiter on 2017. Patient had been doing very well up until this point. He's been utilizing a cane with ambulation, is going to physical therapy 2-3 days a week. I personally seen the patient for his first postop visit, he was doing great, his x-ray showed stable hardware. We were contacted by the emergency room staff regarding patient, Dr. Corral my attending was available. We reported to the ER for evaluation. Patient is lying in bed comfortably, lightheadedness and shortened internally rotated. Having some pain in the right hip with any type of motion. He denied any pain involving the right knee, right foot or ankle. He denies any pain in the left lower extremity, bilateral upper extremities. Review of Systems Constitutional: Reports as per [facility] Past Medical History Past Medical History: Diabetes Mellitus, Hypertension Additional Past Medical History / Comment(s): recent EC for abdominal pain- tests neg, heart murmer, hx ulcer, hx skin cancer History of Any Multi-Drug Resistant Organisms: None Reported Past Surgical History: Orthopedic Surgery Additional Past Surgical History / Comment(s): rt knee replacement x 2, left knee replacement, left shoulder surgery, skin cancer removed from nose with skin graft Past Anesthesia/Blood Transfusion Reactions: No Reported Reaction Past Psychological History: No Psychological Hx Reported Smoking Status: Never smoker Past Alcohol Use History: None Reported Additional Past Alcohol Use History / Comment(s): quit smoking 25 yrs ago, smoked for 40 yrs, 1 PPD Past Drug Use History: None Reported - Past Family History Mother Family Medical History: No Reported History Medications and Allergies Home Medications Medication Instructions Recorded Confirmed Type Insulin Aspart [NovoLOG 22 unit SQ AC-TID 03/30/17 05/15/17 History (formulary)] Insulin Detemir [Levemir] 80 unit SQ HS 03/30/17 05/15/17 History Lisinopril [Zestril] 20 mg PO DAILY 03/30/17 05/15/17 History Multivit-Min/FA/Lycopen/Lutein 1 tab PO DAILY 03/30/17 05/15/17 History [Centrum Silver Tablet] Simvastatin [Zocor] 20 mg PO HS 03/30/17 05/15/17 History diphenhydrAMINE [Benadryl] 25 mg PO BID 03/30/17 05/15/17 History glipiZIDE [Glucotrol] 10 mg PO AC-BID 03/30/17 05/15/17 History metFORMIN HCL 1,000 mg PO BID 03/30/17 05/15/17 History Aspirin 325 mg PO HS 05/15/17 05/15/17 History Ibuprofen [Motrin Ib] 200 mg PO BID PRN 05/15/17 05/15/17 History Mupirocin 2% Nasal Oint [Bactroban 1 applic NASAL DAILY 05/15/17 05/15/17 History 2% Nasal Oint] Allergies Allergy/AdvReac Type Severity Reaction Status Date / Time No Known Allergies Allergy Verified 05/15/17 16:42 Physical Examination Right lower extremity: Incision over the anterior aspect of the right hip region is well healed, there is no semi-erythema, ecchymosis. There is some soft tissue swelling noted distal and lateral to the incision No open lesions visualized throughout the lower extremity Obvious shortening and internal rotation of the leg is noted compared to contralateral side No tenderness with palpation surrounding the knee. Patient's plantar flexion, dorsiflexion, EHL, FHL are intact Calf is soft, no tenderness with palpation, sensory exam to light touch throughout extremity is intact, dorsal pedis pulses 2+ Results - Diagnostic results Hip x-ray: report reviewed, image reviewed Assessment and Plan Plan: Imaging: X-rays were reviewed of the right hip, images demonstrate no acute fractures. Posterior dislocation noted of the right hip joint. Hardware remains stable x- rays reviewed of the right knee, no acute fractures or dislocations noted. Assessment: 1. Right periprosthetic hip dislocation 2. Recent history of right total hip arthroplasty, 04/09/2017 3. History of bilateral total knee arthroplasty Plan: Treatment plan was discussed with the patient and his today at bedside. We will attempt a closed reduction of the right hip in the emergency room. Patient is in agreement and would like to proceed. Please see procedure note for further detail. Patient will be admitted for observation and fitting of a hip abduction brace Resume home medications Weight-bear as tolerated in brace Further recommendations to follow Time with Patient: Less than 30
[2017-05-15] MEDS ORDERED: NALOXONE 0.4 MG/ML 1 ML VIAL IV PRN (18:56)
--- NOTE | 2017-05-15 19:05 | P.OP ---
Date of Procedure: 05/15/17 Preoperative Diagnosis: Right total hip arthroplasty dislocation Postoperative Diagnosis: Same Procedure(s) Performed: Closed reduction right total hip arthroplasty dislocation Anesthesia: MAC Surgeon: Shaw Corral Shipping Clerk/Admin #1: Shreyas Ugarte Estimated Blood Loss (ml): 0 Pathology: none sent Condition: stable Disposition: observation Indications for Procedure: The patient's 81-year-old male who underwent right anterior total hip arthroplasty by Dr. Lassiter 5 weeks ago presents after falling dislocating his right hip. Upon evaluation he edge foreshortening and internal rotation of his right lower extremity. A discussion of the risks and benefits of closed reduction was made with the patient and his . He opted to proceed. Risks to include recurrence of dislocation, fracture, and need for subsequent procedures was discussed. Informed consent was obtained. Operative Findings: As below Description of Procedure: The patient received propofol in the emergency room by the physician along with respiratory support. Once sufficiently anesthetized, the right total hip arthroplasty dislocation was then reduced with flexion and traction along with internal and external rotation of the right leg. A palpable reduction was noted. Post reduction x-rays showed adequate reduction of the arthroplasty. He tolerated the procedure well. He is monitored until fully awake. He was admitted for overnight observation and bracing. No complications were incurred.
--- NOTE | 2017-05-15 19:08 | XR ---
EXAMINATION TYPE: XR Hip Limited RT DATE OF EXAM: 05/15/2017 CLINICAL HISTORY: Prior right hip dislocation TECHNIQUE: Single view of the left hip is obtained COMPARISON: 05/15/2017 right hip and pelvis radiograph's FINDINGS: There is no acute fracture/dislocation evident in the right hip. Right hip arthroplasty ma intains alignment. The joint space in the right hip appears within normal limits. The overlying soft tissue appears unremarkable. IMPRESSION: Alignment is anatomic on this single view right hip radiograph.
[2017-05-15 20:30] LABS: Glucose,Whole Blood 176 mg/dL (75-99)
[2017-05-15] MEDS ORDERED: IBUPROFEN 200 MG TAB PO PRN (21:45)
[2017-05-15] MEDS ORDERED: ATORVASTATIN 10 MG TAB PO SCH (21:45)
[2017-05-15] MEDS ORDERED: INSULIN DETEMIR 100 UNIT/ML 10 ML VIAL SQ SCH (21:46)
[2017-05-15] MEDS ORDERED: IBUPROFEN 200 MG TAB PO SCH (23:00)
[2017-05-15] MEDS ORDERED: HYDROcodone/APAP 7.5-325MG 1 EACH TAB PO PRN (23:21)
[2017-05-15] MEDS ORDERED: MORPHINE ORAL SOLN 10 MG/5 ML CUP PO PRN (23:22)
[2017-05-15] MEDS: INSULIN ASPART 100 UNIT/ML 1 ML 10 ML VIAL SQ SCH (23:26)
[2017-05-15] MEDS: metFORMIN 500 MG TAB PO SCH ×2 (23:27→23:32)
[2017-05-16 06:50] VITALS: BP 181/85; PULSE 89; RESP 16; TEMP 98
[2017-05-16 07:04] LABS: Glucose,Whole Blood 179 mg/dL (75-99)
[2017-05-16] MEDS ORDERED: glipiZIDE 10 MG TAB PO SCH (07:30)
[2017-05-16] MEDS ORDERED: INSULIN ASPART 100 UNIT/ML 1 ML 10 ML VIAL SQ SCH (07:30)
[2017-05-16] MEDS: metFORMIN 500 MG TAB PO SCH (07:39)
[2017-05-16] MEDS: INSULIN ASPART 100 UNIT/ML 1 ML 10 ML VIAL SQ SCH ×4 (07:39→12:38)
[2017-05-16] MEDS ORDERED: diphenhydrAMINE 25 MG CAP PO SCH (09:00)
[2017-05-16] MEDS ORDERED: LISINOPRIL 20 MG TAB PO SCH (09:00)
[2017-05-16 11:31] LABS: Glucose,Whole Blood 211 mg/dL (75-99)
[2017-05-16] MEDS ORDERED: MULTIVITAMINS, THERA 1 EACH TAB PO SCH (12:00)
--- NOTE | 2017-05-16 13:25 | P.PN ---
Subjective Progress Note Date: 05/16/17 Principal diagnosis: Status post closed reduction right hip Patient seen today resting in his hospital bed, he appears comfortable. His is present at bedside. Patient is utilizing the hip abduction brace at this time. Therapy is present today to get patient out of bed and work on ambulation. He denies any headaches, lightheadedness, chest pain or shortness of breath. Objective - Vital Signs Vital signs: Vital Signs Temp 98 F 05/16/17 06:49 Pulse 89 05/16/17 06:49 Resp 16 05/16/17 06:49 BP 181/85 05/16/17 06:49 Pulse Ox 93 L 05/16/17 07:23 Intake & Output 05/15/17 05/16/17 05/16/17 18:59 06:59 18:59 Intake Total 240 Output Total 565 Balance -565 240 Weight 127.006 kg Intake: Oral 240 Output: Urine 565 - Exam Right lower extremity: Hip abduction brace is in good position. Logroll maneuver reproduces minimal pain in the hip joint. No significant leg length discrepancy noted. Plantar flexion, dorsiflexion, EHL, FHL is intact. Sensory exam light touch is intact of the extremity. Calf is soft, no tenderness with palpation. Dorsal pedis pulses 2+ - Labs Labs: Abnormal Lab Results - Last 24 Hours (Table) 05/15/17 05/16/17 05/16/17 Range/Units 20:13 06:56 11:21 POC Glucose (mg/dL) 176 H 179 H 211 H (75-99) mg/dL Assessment and Plan Plan: Assessment: 1. Status post closed reduction right hip Plan: Continue use of abduction brace Physical therapy to evaluate today Hold off on outpatient physical therapy at this time Plan for follow-up in [address] Maikol Alva for discharge home today Time with Patient: Less than 30
--- NOTE | 2017-05-16 13:31 | P.DS ---
Providers Date of admission: 05/15/17 18:57 Expected date of discharge: 05/16/17 Attending physician: Shaw Corral Primary care physician: Arjun Moss [facility] Course: Date of admission: 05/15/2017 Date of discharge: 05/16/2017 Admission diagnosis: Status post closed reduction right hip Discharge diagnosis: Same Attending physician: Dr. Corral Surgical procedures: Closed reduction right hip Brief history: Patient is a 81-year-old male who presented to [facility] yesterday with regards to an injury to the right hip. Patient was walking up his porch when he stepped backwards in the hip gave out, he did fall to the ground. He was unable to put weight on his right leg. EMS to bring the patient to the hospital, upon arrival imaging test demonstrated a dislocated right periprosthetic hip joint. Dr. Corral and myself with available to examine the patient in the emergency room, with the aid of the emergency room staff and respiratory, patient was given anesthesia every location procedure was done at bedside. He was admitted to the hospital for further evaluation and fitting of a hip abduction brace. Hospital course: Details of patient's surgery can be found in operative report. Patient tolerated the procedure well and was subsequently transported to orthopedic floor. Patient's orthopeidc and medical care was provided daily. Patient had daily laboratory tests performed for evaluation of overall blood counts. Patient had daily physical therapy to include strengthening range of motion as well as education with walker ambulation. Patient was noted to have a relatively uneventful postoperative course. After fitting of the hip abduction brace and evaluation physical therapy, patient is stable for discharge to home Discharge condition/disposition: Patient will be discharged home in stable condition. Discharge instructions: 1. Wound care and infection precautions, keep incision dry and covered while showering, no lotions, creams, moisturizers. No soaking, tubs, pools, hottubs. Do not scrub over the incision. 2. Weight-bear as tolerated with walker / cane until follow-up.utilize hip abduction brace. Hold off on outpatient physical therapy 3. Ice and elevate when necessary. Do not exceed 20 minutes per hour with ice pack. 4. Utilize compression sleeve until seen at first follow up appointment. 5. Follow up with your primary care doctor 7-10 days after discharge. 6. Contact [facility] with any questions, . Procedures: Closed reduction right hip Patient Condition at Discharge: Good Plan - Discharge Summary Discharge Rx Participant: No New Discharge Prescriptions: No Action Simvastatin [Zocor] 20 mg PO HS Insulin Detemir [Levemir] 80 unit SQ HS diphenhydrAMINE [Benadryl] 25 mg PO BID Insulin Aspart [NovoLOG (formulary)] 22 unit SQ AC-TID metFORMIN HCL 1,000 mg PO BID glipiZIDE [Glucotrol] 10 mg PO AC-BID Lisinopril [Zestril] 20 mg PO DAILY Multivit-Min/FA/Lycopen/Lutein [Centrum Silver Tablet] 1 tab PO DAILY Mupirocin 2% Nasal Oint [Bactroban 2% Nasal Oint] 1 applic NASAL DAILY Aspirin 325 mg PO HS Ibuprofen [Motrin Ib] 200 mg PO BID PRN PRN Reason: Pain Discharge Medication List Insulin Aspart [NovoLOG (formulary)] 22 unit SQ AC-TID 03/30/17 [History] Insulin Detemir [Levemir] 80 unit SQ HS 03/30/17 [History] Lisinopril [Zestril] 20 mg PO DAILY 03/30/17 [History] Multivit-Min/FA/Lycopen/Lutein [Centrum Silver Tablet] 1 tab PO DAILY 03/30/17 [ History] Simvastatin [Zocor] 20 mg PO HS 03/30/17 [History] diphenhydrAMINE [Benadryl] 25 mg PO BID 03/30/17 [History] glipiZIDE [Glucotrol] 10 mg PO AC-BID 03/30/17 [History] metFORMIN HCL 1,000 mg PO BID 03/30/17 [History] Aspirin 325 mg PO HS 05/15/17 [History] Ibuprofen [Motrin Ib] 200 mg PO BID PRN 05/15/17 [History] Mupirocin 2% Nasal Oint [Bactroban 2% Nasal Oint] 1 applic NASAL DAILY 05/15/17 [History] Follow up Appointment(s)/Referral(s): Arjun Moss DO [Primary Care Provider] - 1-2 days Dao Lassiter DO [Doctor of Osteopathic Medicine] - 1 Week Activity/Diet/Wound Care/Special Instructions: Discharge instructions: 1. Utilize hip abduction brace 2. Utilize walker or cane with ambulation 3. Avoid physical therapy outpatient at this time 4. Follow-up with [facility] in 1 week Discharge Disposition: HOME SELF-CARE
--- NOTE | 2017-05-16 15:17 | P.CONS ---
History of Present Illness - Reason for Consult Type 2 diabetes mellitus - History of Present Illness Patient is on an-year-old gentleman slipped and the had dislocated his right hip patient underwent closed reduction patient is clinically doing well denied any pain denied any fever chills nausea vomiting patient does have history of diabetes mellitus ad gladys. demand hypertension which are fairly controlled. Review of Systems REVIEW OF SYSTEMS: CONSTITUTIONAL: No fever, no malaise, no fatigue. HEENT: No recent visual problems or hearing problems. Denied any sore throat. CARDIOVASCULAR: No chest pain, orthopnea, PND, no palpitations, no syncope. PULMONARY: No shortness of breath, no cough, no hemoptysis. GASTROINTESTINAL: No diarrhea, no nausea, no vomiting, no abdominal pain. Normoactive bowel sounds. NEUROLOGICAL: No headaches, no weakness, no numbness. HEMATOLOGICAL: Denies any bleeding or petechiae. GENITOURINARY: Denies any burning micturition, frequency, or urgency. MUSCULOSKELETAL/RHEUMATOLOGICAL: Denies any joint pain, swelling, or any muscle pain. ENDOCRINE: Denies any polyuria or polydipsia. The rest of the 14-point review of systems is negative. Past Medical History Past Medical History: Cancer, Diabetes Mellitus, Hyperlipidemia, Hypertension Additional Past Medical History / Comment(s): IDDM type II, gastric ulcer 30-40 yrs ago, skin cancer with removal, R cataract, occasional epistaxis L nare. History of Any Multi-Drug Resistant Organisms: None Reported Past Surgical History: Joint Replacement, Orthopedic Surgery Additional Past Surgical History / Comment(s): 04/11/17 Total anterior R hip replacement, rt knee replacement x 2 (rods), left knee replacement, left shoulder surgery d/t tendon detachment, skin cancer removed from nose with skin graft, L cataract removed, colonoscopy with benign polyps in past. Past Anesthesia/Blood Transfusion Reactions: No Reported Reaction Smoking Status: Former smoker - Past Family History Mother Family Medical History: No Reported History Additional Family Medical History / Comment(s): Mother at the age of 62 yrs , 5 months after her spouses and pt thinks that is why she . Father Family Medical History: No Reported History Additional Family Medical History / Comment(s): Pt states his father was healthy and that he at the age of 64yrs. Medications and Allergies Home Medications Medication Instructions Recorded Confirmed Type Insulin Aspart [NovoLOG 22 unit SQ AC-TID 03/30/17 05/15/17 History (formulary)] Insulin Detemir [Levemir] 80 unit SQ HS 03/30/17 05/15/17 History Lisinopril [Zestril] 20 mg PO DAILY 03/30/17 05/15/17 History Multivit-Min/FA/Lycopen/Lutein 1 tab PO DAILY 03/30/17 05/15/17 History [Centrum Silver Tablet] Simvastatin [Zocor] 20 mg PO HS 03/30/17 05/15/17 History diphenhydrAMINE [Benadryl] 25 mg PO BID 03/30/17 05/15/17 History glipiZIDE [Glucotrol] 10 mg PO AC-BID 03/30/17 05/15/17 History metFORMIN HCL 1,000 mg PO BID 03/30/17 05/15/17 History Aspirin 325 mg PO HS 05/15/17 05/15/17 History Ibuprofen [Motrin Ib] 200 mg PO BID PRN 05/15/17 05/15/17 History Mupirocin 2% Nasal Oint [Bactroban 1 applic NASAL DAILY 05/15/17 05/15/17 History 2% Nasal Oint] Allergies Allergy/AdvReac Type Severity Reaction Status Date / Time No Known Allergies Allergy Verified 05/15/17 16:42 Physical Exam Vitals: Vital Signs Temp Pulse Pulse Resp BP BP Pulse Ox 05/16/17 07:23 93 L 05/16/17 06:49 98 F 89 16 181/85 93 L 05/16/17 00:00 98.5 F 105 H 18 166/74 95 05/15/17 23:00 98.1 F 107 H 18 149/77 96 05/15/17 19:26 103 H 18 165/78 96 05/15/17 19:00 106 H 19 149/78 96 05/15/17 18:55 108 H 16 140/66 96 05/15/17 18:50 104 H 18 154/70 97 05/15/17 18:45 99 15 179/86 95 05/15/17 18:39 109 H 18 205/94 05/15/17 17:56 108 H 20 162/85 96 05/15/17 16:04 98.6 F 100 20 132/74 99 Intake and Output 05/16/17 05/16/17 05/16/17 06:59 14:59 22:59 Intake Total 240 Output Total 340 300 Balance -340 -60 Intake: Oral 240 Output: Urine 340 300 Other: # Voids 2 PHYSICAL EXAMINATION: GENERAL: The patient is alert and oriented x3, not in any acute distress. Well developed, well nourished. HEENT: Pupils are round and equally reacting to light. EOMI. No scleral icterus. No conjunctival pallor. Normocephalic, atraumatic. No pharyngeal erythema. No thyromegaly. CARDIOVASCULAR: S1 and S2 present. No murmurs, rubs, or gallops. PULMONARY: Chest is clear to auscultation, no wheezing or crackles. ABDOMEN: Soft, nontender, nondistended, normoactive bowel sounds. No palpable organomegaly. MUSCULOSKELETAL: No joint swelling or deformity. EXTREMITIES: Deferred to orthopedic surgery NEUROLOGICAL: Gross neurological examination did not reveal any focal deficits. SKIN: No rashes. Results Labs: Abnormal Lab Results - Last 24 Hours (Table) 05/15/17 05/16/17 05/16/17 Range/Units 20:13 06:56 11:21 POC Glucose (mg/dL) 176 H 179 H 211 H (75-99) mg/dL Assessment and Plan Plan: -Status post close reduction of the right hip dislocation postoperatively patient is clinically doing well patient is okay discharged from medical perspective. Pain management as per primary service -type 2 diabetes mellitus -Hyperlipidemia Hypertension Plan: Patient is clinically doing well can be discharged from medical perspective is measured discharge medications were reviewed and appropriate changes were made.
== END 2017-05-16 14:29 | disposition home or self-care (01) ==
LOC: EC 15:52 → 3SUR 18:57
PROVIDERS: ADMIT Orthopaedic Surgery; ATTEND Orthopaedic Surgery
DX: T84.020A Dislocation of internal right hip prosthesis, initial encounter (principal); Y79.2 Prosthetic and other implants, materials and accessory orthopedic devices associated with adverse incidents; Z96.641 Presence of right artificial hip joint; E11.9 Type 2 diabetes mellitus without complications; E78.5 Hyperlipidemia, unspecified; I10 Essential (primary) hypertension; Z79.82 Long term (current) use of aspirin; Z79.84 Long term (current) use of oral hypoglycemic drugs; Z79.899 Other long term (current) drug therapy; Z79.4 Long term (current) use of insulin; Z87.891 Personal history of nicotine dependence; Z87.11 Personal history of peptic ulcer disease; Z85.828 Personal history of other malignant neoplasm of skin; Z96.653 Presence of artificial knee joint, bilateral; W19.XXXA Unspecified fall, initial encounter; Y92.008 Other place in unspecified non-institutional (private) residence as the place of occurrence of the external cause
CPT/HCPCS: 27265; 99285; 96360 ×2; 94760; 97162; 73501; 73502; 73562; G0378 ×2; J3010; J2704

== ENCOUNTER 2017-07-04 16:17 | Emergency (ER) | payer MEDICARE, BC ==
[2017-07-04] MEDS ORDERED: MORPHINE SULFATE 4 MG/ML SYRINGE IVP STA (16:34)
--- NOTE | 2017-07-04 16:35 | ED ---
Fall HPI <Kirk Little - Last Filed: 07/04/17 17:42> - General Source: patient, EMS Mode of arrival: EMS Limitations: physical limitation <Imtiaz Sanchez - Last Filed: 07/04/17 17:59> - General Stated Complaint: fall Time Seen by Provider: 07/04/17 16:21 - History of Present Illness Initial Comments: This a 81-year-old male presents emergency Department chief complaint of fall. Patient states that his shoes abdominal states that he went on states his leg slipped out and he complains of right hip pain, head injury. Patient states that he did strike his head but he did not lose consciousness he has no headache at this time is an abrasion above his right eye. Patient states that he's had a prior right hip dislocation. Patient states his surgeon is Dr. Mcginnis who did the original surgery in February of this year. Patient denies any back pain no chest pain or shortness of breath. (Imtiaz Sanchez) - Related Data Home Medications Medication Instructions Recorded Confirmed Insulin Aspart [NovoLOG 15 unit SQ AC-TID 03/30/17 07/04/17 (formulary)] Insulin Detemir [Levemir] 80 unit SQ HS 03/30/17 07/04/17 Lisinopril [Zestril] 20 mg PO DAILY 03/30/17 07/04/17 Multivit-Min/FA/Lycopen/Lutein 1 tab PO DAILY 03/30/17 07/04/17 [Centrum Silver Tablet] Simvastatin [Zocor] 20 mg PO HS 03/30/17 07/04/17 diphenhydrAMINE [Benadryl] 25 mg PO BID 03/30/17 07/04/17 glipiZIDE [Glucotrol] 10 mg PO AC-BID 03/30/17 07/04/17 metFORMIN HCL 1,000 mg PO BID 03/30/17 07/04/17 Aspirin 325 mg PO HS 05/15/17 07/04/17 Ibuprofen [Motrin Ib] 200 mg PO BID PRN 05/15/17 07/04/17 Mupirocin 2% Nasal Oint [Bactroban 1 applic NASAL DAILY PRN 05/15/17 07/04/17 2% Nasal Oint] Previous Rx's Medication Instructions Recorded Hydrocodone/Acetaminophen [[place] 1 tab PO Q6HR PRN #10 tab 07/04/17 5-325] Allergies Allergy/AdvReac Type Severity Reaction Status Date / Time No Known Allergies Allergy Verified 07/04/17 16:32 Review of Systems ROS Other: All systems not noted in ROS Statement are negative. <Kirk Little - Last Filed: 07/04/17 17:42> ROS Other: All systems not noted in ROS Statement are negative. <Imtiaz Sanchez - Last Filed: 07/04/17 17:59> ROS Statement: Those systems with pertinent positive or pertinent negative responses have been documented in the HPI. Past Medical History Past Medical History: Cancer, Diabetes Mellitus, Hyperlipidemia, Hypertension Additional Past Medical History / Comment(s): IDDM type II, gastric ulcer 30-40 yrs ago, skin cancer with removal, R cataract, occasional epistaxis L nare. History of Any Multi-Drug Resistant Organisms: None Reported Past Surgical History: Joint Replacement, Orthopedic Surgery Additional Past Surgical History / Comment(s): 04/11/17 Total anterior R hip replacement, rt knee replacement x 2 (rods), left knee replacement, left shoulder surgery d/t tendon detachment, skin cancer removed from nose with skin graft, L cataract removed, colonoscopy with benign polyps in past. Past Anesthesia/Blood Transfusion Reactions: No Reported Reaction Past Psychological History: No Psychological Hx Reported Smoking Status: Former smoker Past Alcohol Use History: Rare Past Drug Use History: None Reported - Past Family History Mother Family Medical History: No Reported History Additional Family Medical History / Comment(s): Mother at the age of 62 yrs , 5 months after her spouses and pt thinks that is why she . Father Family Medical History: No Reported History Additional Family Medical History / Comment(s): Pt states his father was healthy and that he at the age of 64yrs. <Imtiaz Sanchez - Last Filed: 07/04/17 17:59> General Exam Limitations: no limitations General appearance: alert, in no apparent distress Head exam: Present: atraumatic, normocephalic, normal inspection Eye exam: Present: normal appearance, PERRL, EOMI, periorbital tenderness, other (Small abrasion above the right eye). Absent: scleral icterus, conjunctival injection, periorbital swelling ENT exam: Present: normal exam, mucous membranes moist Neck exam: Present: normal inspection, full ROM. Absent: tenderness, meningismus, lymphadenopathy Respiratory exam: Present: normal lung sounds bilaterally. Absent: respiratory distress, wheezes, rales, rhonchi, stridor Cardiovascular Exam: Present: regular rate, normal rhythm, normal heart sounds. Absent: systolic murmur, diastolic murmur, rubs, gallop, clicks GI/Abdominal exam: Present: soft, normal bowel sounds. Absent: distended, tenderness, guarding, rebound, rigid Extremities exam: Present: other (Right hip there is internal rotation, tenderness with palpation neurovascular intact) Skin exam: Present: warm, dry, intact, normal color. Absent: rash <Imtiaz Sanchez - Last Filed: 07/04/17 17:59> Vital Signs 07/04/17 07/04/17 07/04/17 16:26 17:01 17:30 Temperature 98.1 F Pulse Rate 94 87 90 Respiratory 18 18 16 Rate Blood Pressure 205/102 221/91 230/102 O2 Sat by Pulse 95 95 98 Oximetry 07/04/17 07/04/17 07/04/17 17:34 17:36 17:37 Temperature Pulse Rate 100 92 91 Respiratory 16 16 16 Rate Blood Pressure 266/95 248/116 242/113 O2 Sat by Pulse 98 98 98 Oximetry 07/04/17 07/04/17 07/04/17 17:41 17:47 17:50 Temperature Pulse Rate 90 99 100 Respiratory 16 18 18 Rate Blood Pressure 218/96 210/91 211/95 O2 Sat by Pulse 98 95 95 Oximetry Procedures - Orthopedic Joint Reduction Joint #1 Time Out Performed: Yes Side: right Joint Reduction Location: hip Shoulder Technique Used (if applicable): traction/counter-traction Technique Used: traction/counter-traction Post-Reduction Neuro Exam: intact Post-Reduction Vascular Exam: intact Post Reduction X-Ray Obtained: Yes Post Reduction X-Ray Results: reduced Patient Tolerated Procedure: well - Procedural Sedation Procedural Sedation Start Time: 17:30 Procedural Sedation Stop Time: 17:55 Indications: fracture/dislocation reduction ASA Class: II Preparation: site monitor applied, pulse oximeter, capnometry used, supplemental O2 applied IV Etomidate Dose (mgs): 15 Complications: none Patient Tolerated Procedure: well <Kirk Little - Last Filed: 07/04/17 17:42> Medical Decision Making <Kirk Little - Last Filed: 07/04/17 17:42> <Imtiaz Sanchez - Last Filed: 07/04/17 17:59> - Medical Decision Making 81-year-old male presents for fall, right hip dislocation. Patient had reduction performed in emergency department. His case was discussed with Dr. Lassiter by Dr. Little who recommends the patient apply his brace that he has at home. Patient did have CT of his head and neck shows hematoma of his right periorbital region. There is no intracranial bleed or cervical fracture. Patient be discharged at this time return parameters were discussed. (Imtiaz Sanchez) Disposition <Kirk Little - Last Filed: 07/04/17 17:42> Is patient prescribed a controlled substance at d/c from ED?: Yes When asked, does pt state using other controlled substances?: No If prescribed controlled substance>3 days was MAPS reviewed?: Prescribed <3 Days If opioid is for acute pain is fill amount 7 days or less?: Yes If Rx opioid, was Start Talking consent form obtained?: No Time of Disposition: 17:59 <Imtiaz Sanchez - Last Filed: 07/04/17 17:59> Clinical Impression: Dislocation of hip joint prosthesis, Facial hematoma, Fall Disposition: HOME SELF-CARE Condition: Stable Instructions: Hip Dislocation (ED) Additional Instructions: Please wear brace and follow-up with your orthopedic surgeon. Prescriptions: Hydrocodone/Acetaminophen [[place] 5-325] 1 tab PO Q6HR PRN #10 tab PRN Reason: Pain Referrals: Arjun Moss DO [Primary Care Provider] - 1-2 days Dao Lassiter DO [Family Provider] - 1-2 days
--- NOTE | 2017-07-04 16:52 | CT ---
EXAMINATION TYPE: CT brain sean bahena DATE OF EXAM: 07/04/2017 COMPARISON: NONE HISTORY: Fall. CT DLP: 1852.3 mGycm Automated exposure control for dose reduction was used. TECHNIQUE: CT scan of the head and cervical spine are performed without contrast. FINDINGS: There is cerebral cortical atrophy. There is no mass effect nor midline shift. There is n o sign of intracranial hemorrhage. The calvarium is intact. There is right frontal scalp hematoma. There is straightening of the cervical vertebra. There is slight kyphotic curvature. There is narrowi ng of the disc spaces from C3 to C7. There is a few millimeter anterior subluxation of C7 in relation to T1. Skull base is intact. There is multilevel hypertrophic facet arthropathy mainly at c 2 to C5. IMPRESSION: Right frontal scalp hematoma. Cerebral atrophy. No acute intracranial abnormality. Spondylotic changes in the cervical spine. No fracture.
--- NOTE | 2017-07-04 17:03 | XR ---
EXAMINATION TYPE: XR Hip RT and AP Pelvis DATE OF EXAM: 07/04/2017 COMPARISON: 05/15/2017 HISTORY: Hip pain TECHNIQUE: A single AP view of the pelvis is obtained. Two views of the right hip are obtained. FINDINGS: There is a lateral superior posterior dislocation of the prosthetic right femoral head. I see no fracture. Pelvic ring is intact. CONCLUSION: Dislocated right hip prosthesis. No fracture seen.
[2017-07-04] MEDS ORDERED: ETOMIDATE 2 MG/ML 10 ML VIAL IV STA (17:10)
[2017-07-04] MEDS ORDERED: MORPHINE SULFATE 4 MG/ML SYRINGE IVP ONE (17:37)
[2017-07-04] MEDS ORDERED: hydrALAZINE HCL 20 MG/ML 1 ML VIAL IVP STA ×2 (17:37→18:28)
[2017-07-04] MEDS ORDERED: ETOMIDATE 2 MG/ML 10 ML VIAL IVP STA (17:42)
[2017-07-04 17:48] VITALS: RESP 18
--- NOTE | 2017-07-04 17:51 | XR ---
EXAMINATION TYPE: XR Hip Limited RT DATE OF EXAM: 07/04/2017 COMPARISON: Today HISTORY: Post reduction TECHNIQUE: Single view FINDINGS: There is anatomic reduction of the prosthetic femoral head. I see no fracture. IMPRESSION: Anatomic reduction.
[2017-07-04 18:52] VITALS: BP 189/89; PULSE 80; TEMP 98
== END 2017-07-04 19:00 | disposition home or self-care (01) ==
LOC: EC 16:17
DX: T84.020A Dislocation of internal right hip prosthesis, initial encounter (principal); S00.83XA Contusion of other part of head, initial encounter; E11.9 Type 2 diabetes mellitus without complications; E78.5 Hyperlipidemia, unspecified; I10 Essential (primary) hypertension; Z87.891 Personal history of nicotine dependence; Z85.828 Personal history of other malignant neoplasm of skin; Z79.4 Long term (current) use of insulin; Z79.82 Long term (current) use of aspirin; Z79.899 Other long term (current) drug therapy; Z53.8 Procedure and treatment not carried out for other reasons; Z53.29 Procedure and treatment not carried out because of patient's decision for other reasons; W01.10XA Fall on same level from slipping, tripping and stumbling with subsequent striking against unspecified object, initial encounter; Y92.009 Unspecified place in unspecified non-institutional (private) residence as the place of occurrence of the external cause
CPT/HCPCS: 99284 ×2; 27265; 99152 ×2; 96374 ×2; 96375 ×2; 96376 ×2; 73501; 73502; 72125; 70450; J2270; J0360

== ENCOUNTER → 2017-07-13 | Outpatient (CLI) | payer MEDICARE, BC ==
[2017-07-13 13:45] LABS: Basophils # (A) 0.1 k/uL (0-0.2); Basophils % (A) 1 %; Eosinophils # (A) 0.2 k/uL (0-0.7); Eosinophils % (A) 3 %; HCT 40.5 % (39.0-53.0); HGB 13.1 gm/dL (13.0-17.5); Lymphocytes # (A) 1.7 k/uL (1.0-4.8); Lymphocytes % (A) 21 %; MCH 30.2 pg (25.0-35.0); MCHC 32.5 g/dL (31.0-37.0); MCV 93.2 fL (80.0-100.0); Mean Platelet Volume 7.2; Monocytes # (A) 0.6 k/uL (0-1.0); Monocytes % (A) 7 %; Neutrophils # (A) 5.1 k/uL (1.3-7.7); Neutrophils % (A) 65 %; Platelet Count 173 k/uL (150-450); RBC 4.34 m/uL (4.30-5.90); RDW 14.8 % (11.5-15.5); WBC 7.7 k/uL (3.8-10.6)
[2017-07-13 13:50] LABS: INR 1.1 (<1.2); Partial Thromboplastin Time 23.2 sec (22.0-30.0); Prothrombin Time 10.4 sec (9.0-12.0)
[2017-07-13 13:58] LABS: Potassium 4.9 mmol/L (3.5-5.1)
== END | disposition home or self-care (01) ==
LOC: LABPAT 13:18
PROVIDERS: ATTEND Orthopaedic Surgery
DX: Z01.812 Encounter for preprocedural laboratory examination (principal); T84.028D Dislocation of other internal joint prosthesis, subsequent encounter; Z79.01 Long term (current) use of anticoagulants; Z96.641 Presence of right artificial hip joint
CPT/HCPCS: 36415; 80051; 85025; 85610; 85730; 87070

== ENCOUNTER 2017-07-23 07:30 | Inpatient (IN) | payer MEDICARE, BC ==
--- NOTE | 2017-07-22 13:02 | HP ---
HISTORY AND PHYSICAL DATE OF SERVICE: 07/23/2017. HISTORY: Zelalem Jeffries is a 81-year-old patient who had previously undergone right total hip arthroplasty on 05/15/2017. He had 2 dislocations postoperatively with satisfactory reductions. I discussed his recurrent hip instability and recommended revision of the right total hip arthroplasty, probably just revising the polyethylene and femoral head components. I discussed the procedure, risks, complications, benefits, recovery. He was agreeable. Consent regarding the procedure was obtained. Previously clearance had been provided by Dr. Arjun Moss. PAST MEDICAL HISTORY: [id number] diabetes, hypertension. PAST SURGICAL HISTORY: Total knee arthroplasty, shoulder arthroscopy, right total hip arthroplasty. DAILY MEDICATIONS: 1. Glipizide. 2. Insulin. 3. Lisinopril. 4. Metformin. 5. NovoLog. 6. Simvastatin. ALLERGIES: None reported. SOCIAL HISTORY: Patient denies tobacco use. PHYSICAL EXAMINATION: Right hip, he has previous well-healed anterior incision. His range of motion is good. He does have some weakness. Straight leg raise is negative. Distal neurovascular exam is intact. Radiographs of the right hip reveal a stable appearing total hip arthroplasty. IMPRESSION: 1. Unstable right total hip arthroplasty. 2. Insulin-dependent diabetes. 3. Hypertension. 4. Hyperlipidemia. PLAN: Direct anterior approach revision right total hip arthroplasty. MMODL / IJN: [id number] /
[~2017-07-23 07:30] MED LIST changes: +MIDAZOLAM 2 MG/2 ML VIAL IV PRN; +ONDANSETRON 4 MG/2 ML VIAL IVP PRN; +SCOPOLAMINE 1.5MG/72HR PATCH TRANSDERM ONE; +fentaNYL (PF) 50 MCG/ML 2 ML AMP IV PRN
[2017-07-23] MEDS: LACTATED RINGERS 1,000 ML IV SCH ×4 (14:15→23:26)
[2017-07-23] MEDS ORDERED: LIDOCAINE 1% 20 ML VIAL (10MG/ML) FOR IV START INTRADERMA ONE (14:16)
[2017-07-23 14:36] LABS: Glucose,Whole Blood 116 mg/dL (75-99)
[2017-07-23] MEDS ORDERED: ROPIVACAINE 246.25 MG, EPINEPHrine 0.5 MG, KETOROLAC 30 MG, cloNIDine HCL/PF 80 MCG, WA... MISCELLANE ONE ×5 (14:57)
[2017-07-23] MEDS ORDERED: MIDAZOLAM 2 MG/2 ML VIAL ONE (15:26)
[2017-07-23] MEDS ORDERED: fentaNYL (PF) 50 MCG/ML 2 ML AMP ONE (15:26)
[2017-07-23] MEDS ORDERED: diphenhydrAMINE 50 MG/ML 1 ML VIAL ONE (15:26)
[2017-07-23] MEDS ORDERED: ePHEDrine SULFATE/0.9% NACL/PF 50 MG/5 ML SYRINGE IV ONE (15:26)
[2017-07-23] MEDS ORDERED: SODIUM CHLORIDE 0.9% 100 ML BAG ONE (15:26)
[2017-07-23] MEDS ORDERED: TRANEXAMIC ACID 1,000 MG/10 ML VIAL ONE (15:26)
[2017-07-23] MEDS ORDERED: PROPOFOL 10 MG/ML 20 ML VIAL IV ONE (15:26)
[2017-07-23] MEDS ORDERED: ceFAZolin 3,000 MG in SODIUM CHLORIDE 0.9% IRRIGATIO 3,000 ML IRRIGATION ONE (15:59)
[2017-07-23] MEDS ORDERED: LACTATED RINGERS 1,000 ML IV ONE (17:00)
[2017-07-23] MEDS ORDERED: HYDROcodone/APAP 7.5-325MG 1 EACH TAB PO PRN ×2 (17:50)
[2017-07-23] MEDS ORDERED: ONDANSETRON 4 MG/2 ML VIAL IVP PRN (17:50)
[2017-07-23] MEDS ORDERED: HYDROmorphone 0.5 MG/0.5 ML SYRINGE IVP PRN ×3 (17:50)
[2017-07-23] MEDS ORDERED: hydrOXYzine PAMOATE 25 MG CAP PO PRN (17:50)
[2017-07-23] MEDS ORDERED: NALOXONE 0.4 MG/ML 1 ML VIAL IV PRN (17:50)
--- NOTE | 2017-07-23 17:50 | P.OP ---
Date of Procedure: 07/23/17 Preoperative Diagnosis: Unstable right total hip arthroplasty Postoperative Diagnosis: Same Procedure(s) Performed: Direct anterior revision right total hip arthroplasty(revising the polyethylene acetabular liner and femoral head) Implants: 1. Depuy pinnacle GVF polyethylene constrained acetabular liner +4 neutral 40 mm ID 62 mm OD 2. Biolox delta TS ceramic femoral head revision 40 mm +5 Anesthesia: local, spinal Surgeon: Dao Lassiter Political Advisor #1: Shreyas Ugarte Estimated Blood Loss (ml): 150 Pathology: none sent Condition: stable Disposition: PACU Indications for Procedure: 81-year-old gentleman who had previously undergone right total hip arthroplasty. He had 2 dislocations one being anterior one being posterior. I discussed his unstable right total hip arthroplasty and recommended revision. I reviewed the procedure, risks, complications and recovery. Patient was agreeable and consent regarding the procedure was obtained. Operative Findings: See description of procedure Description of Procedure: The patient was taken to the operative suite. Patient underwent a spinal anesthetic by the department of anesthesia. The patient was then transferred to the [place] table. The patient did receive preoperative IV antibiotics and TXA. Both lower extremities were placed in standard traction spars. The right hip was now prepped and draped in the normal sterile orthopedic fashion. I made an incision through previous cicatrix sharply through skin. Dissection was taken down to the fascia. I incised the fascia along the line of its fibers just anterior to the iliotibial band. We then placed retractors around the prosthetic hip. There was abundant scar tissue which was debrided out. There was no gross abnormality on exploring the hip joint. We now dislocated the hip. I now removed the femoral head. I checked the femoral component was solid and stable. I now removed the polyethylene acetabular liner. I now checked the stable component which is also stable and appeared to be in good position as did the femoral component. We now irrigated the wound copiously with pulse lavage mechanical irrigation. I placed a trial constrained liner +4 neutral to accommodate a 40 mm head. I now placed a trial +5 40 mm femoral head. We now reduce the hip. The hip appeared to be stable. Multiple attempts were made to dislocate the hip without traction. Very stable. The C- arm was brought in confirming good alignment of the components. The C-arm was now pulled out. The hip was now dislocated. The trial components removed. We now irrigated the wound copiously with pulse lavage mechanical irrigation. I now placed the pedicle constrained acetabular liner +4 neutral 40 mm ID 62 mm OD and clicked into the acetabular cup. We noted it was well seated and locked into position. We now tapped in our revision femoral head ceramic 40 mm +5 and noted that to be stable as well. The constrained liner ring was now placed over the femoral head and the hip was reduced. We noted good positioning of the components at the time of reduction. We now clicked in our constrained liner ring with an audible pop noted and I made sure was locked in probing it with a hemostat. We now brought the C-arm back into the operative field and evaluated the construct, it appeared stable with good positioning of the components. A spot film was obtained to document that. A second gram of TXA was given. The wound was irrigated with pulse lavage mechanical irrigation. The soft tissues were now infiltrated with local analgesic. The fascia was repaired with #1 Vicryl. The subcutaneous soft tissues were repaired layers with 2-0 Vicryl. The skin was approximated with a running 30 strata fix followed by Dermabond and pernio. Sterile dressings were applied. The patient was awakened, transferred to a bed and recovery stable condition. Cecilio SAINI assisted with the procedure.
[2017-07-23 18:41] LABS: Glucose,Whole Blood 171 mg/dL (75-99)
[2017-07-23] MEDS ORDERED: MUPIROCIN 2% OINT 22 GM TUBE NASAL PRN (19:45)
[2017-07-23] MEDS ORDERED: LACTATED RINGERS 1,000 ML IV SCH (20:00)
[2017-07-23 20:19] LABS: Glucose,Whole Blood 261 mg/dL (75-99)
[2017-07-23] MEDS ORDERED: ATORVASTATIN 10 MG TAB PO SCH (21:00)
[2017-07-23] MEDS ORDERED: INSULIN DETEMIR 100 UNIT/ML 10 ML VIAL SQ SCH (21:00)
[2017-07-23] MEDS ORDERED: SENNOSIDES-DOCUSATE SODIUM 1 EACH TAB PO SCH (21:00)
[2017-07-23] MEDS: diphenhydrAMINE 25 MG CAP PO SCH (22:25)
[2017-07-23] MEDS ORDERED: LISINOPRIL 20 MG TAB PO STA (22:28)
[2017-07-23] MEDS: traMADol 50 MG TAB PO SCH ×2 (22:29→22:36)
[2017-07-23] MEDS: INSULIN ASPART 100 UNIT/ML 1 ML 10 ML VIAL SQ SCH (22:35)
[2017-07-23] MEDS: metFORMIN 500 MG TAB PO SCH (22:36)
[2017-07-24] MEDS ORDERED: ceFAZolin 3 GM in SODIUM CHLORIDE 0.9% 100 ML IVPB SCH ×2
--- NOTE | 2017-07-24 06:56 | FL ---
EXAMINATION TYPE: FL guidance operating room DATE OF EXAM: 07/23/2017 HISTORY: Flouroscopy time 20 seconds of fluoroscopy provided. IMPRESSION: 1. Fluoroscopy time.
--- NOTE | 2017-07-24 06:57 | XR ---
EXAMINATION TYPE: XR Hip Limited RT DATE OF EXAM: 07/23/2017 COMPARISON: NONE HISTORY: Postop TECHNIQUE: One view submitted. FINDINGS: There is a prosthetic hip in near anatomic alignment. There is soft tissue edema and emphysema. IMPRESSION: 1. Postoperative change. Appears in near-anatomic alignment.
[2017-07-24 07:14] VITALS: BP 157/82; PULSE 94; RESP 17; TEMP 97.5
[2017-07-24] MEDS ORDERED: glipiZIDE 10 MG TAB PO SCH (07:30)
[2017-07-24 07:46] LABS: Glucose,Whole Blood 207 mg/dL (75-99)
[2017-07-24 07:50] LABS: Basophils % (A) 0 %; Eosinophils % (A) 0 %; HCT 38.6 % (39.0-53.0); HGB 12.3 gm/dL (13.0-17.5); Lymphocytes # (A) 0.9 k/uL (1.0-4.8); Lymphocytes % (A) 9 %; MCH 30.3 pg (25.0-35.0); MCHC 31.9 g/dL (31.0-37.0); MCV 94.9 fL (80.0-100.0); Mean Platelet Volume 7.7; Monocytes # (A) 0.6 k/uL (0-1.0); Monocytes % (A) 6 %; Neutrophils # (A) 7.9 k/uL (1.3-7.7); Neutrophils % (A) 83 %; Platelet Count 143 k/uL (150-450); RBC 4.07 m/uL (4.30-5.90); RDW 14.9 % (11.5-15.5); WBC 9.6 k/uL (3.8-10.6)
[2017-07-24] MEDS: diphenhydrAMINE 25 MG CAP PO SCH (07:55)
[2017-07-24] MEDS: INSULIN ASPART 100 UNIT/ML 1 ML 10 ML VIAL SQ SCH ×2 (07:58→12:18)
[2017-07-24] MEDS: metFORMIN 500 MG TAB PO SCH (07:59)
[2017-07-24] MEDS: traMADol 50 MG TAB PO SCH ×2 (08:00→12:18)
[2017-07-24] MEDS ORDERED: LISINOPRIL 20 MG TAB PO SCH (09:00)
[2017-07-24] MEDS ORDERED: ENOXAPARIN 40 MG/0.4 ML SYRINGE SQ SCH (09:00)
[2017-07-24] MEDS ORDERED: FAMOTIDINE 20 MG TAB PO SCH (09:00)
[2017-07-24] MEDS ORDERED: MELOXICAM 7.5 MG TAB PO SCH (09:00)
--- NOTE | 2017-07-24 10:45 | P.PN ---
Subjective Progress Note Date: 07/24/17 Principal diagnosis: s/p revision right total hip arthroplasty Patient seen today resting in his hospital bed, he appears comfortable. His pain is controlled. He is done well with therapy. He denies any chest pain or shortness of breath. Objective - Vital Signs Vital signs: Vital Signs Temp 97.5 F L 07/24/17 07:13 Pulse 94 07/24/17 07:13 Resp 17 07/24/17 07:13 BP 157/82 07/24/17 07:13 Pulse Ox 94 L 07/24/17 07:13 Intake & Output 07/23/17 07/24/17 07/24/17 18:59 06:59 18:59 Intake Total 1351 1100 Output Total 150 250 Balance 1201 850 Intake: IV 1351 Intake, IV Titration 100 Amount Lactated Ringers 1,000 ml 100 @ 50 mls/hr IV .Q20H [facility] Rx#:[id number] Oral 1000 Output: Urine 250 Estimated Blood Loss 150 Other: Voiding Method Toilet # Voids 1 - Exam Right lower extremity: Incision is clean, dry, and intact. The prineo tape is in good condition. There is minimal soft tissue swelling and ecchymosis surrounding the medial and lateral aspects of the incision. Calf is soft, no tenderness with palpation. Plantar flexion, dorsiflexion, EHL, FHL are intact. Sensory exam to light touch throughout the extremity is intact, dorsal pedis pulses 2+. - Labs CBC & Chem 7: 07/24/17 06:46 Labs: Abnormal Lab Results - Last 24 Hours (Table) 07/23/17 07/23/17 07/23/17 Range/Units 14:10 18:39 20:09 RBC (4.30-5.90) m/uL Hgb (13.0-17.5) gm/dL Hct (39.0-53.0) % Plt Count (150-450) k/uL Neutrophils # (1.3-7.7) k/uL Lymphocytes # (1.0-4.8) k/uL POC Glucose (mg/dL) 116 H 171 H 261 H (75-99) mg/dL 07/24/17 07/24/17 Range/Units 06:46 07:43 RBC 4.07 L (4.30-5.90) m/uL Hgb 12.3 L (13.0-17.5) gm/dL Hct 38.6 L (39.0-53.0) % Plt Count 143 L (150-450) k/uL Neutrophils # 7.9 H (1.3-7.7) k/uL Lymphocytes # 0.9 L (1.0-4.8) k/uL POC Glucose (mg/dL) 207 H (75-99) mg/dL Assessment and Plan Plan: Assessment: Post op day #1 s/p revision right total hip arthroplasty Plan: Pain control, he was oral medication GI and DVT prophylaxis, aspirin 325 mg twice a day Wound care instructions were discussed Home nursing and therapy after discharge Medical recommendations Discharge planning: Patient will be discharged home today Time with Patient: Less than 30
--- NOTE | 2017-07-24 10:49 | P.DS ---
Providers Date of admission: 07/23/17 12:59 Expected date of discharge: 07/24/17 Attending physician: Dao Lassiter Consults: 07/23/17 17:50 Consult Physician Routine Consulting Provider: Arjun Moss Reason/Comments: Medical management Do you want consulting provider notified?: Yes Primary care physician: Arjun Moss Hospital Course: Date of admission: 07/24/1999 and Date of discharge: 07/24/2017 Admission diagnosis: Status post revision right total hip arthroplasty Discharge diagnosis: Same Attending physician: Dr. Lassiter Surgical procedures: Revision right total knee arthroplasty Brief history: Patient is a 81-year-old male with a history of with a previous right total hip arthroplasty that was done March 2017. On 2 separate occasions, patient did have a hip dislocation, these were relocated with the help of anesthesia. He was seen in the outpatient setting by Dr. Lassiter, further treatment was discussed, patient was scheduled for a revision right total hip arthroplasty. Hospital course: Details of patient's surgery can be found in operative report. Patient tolerated the procedure well and was subsequently transported to orthopedic floor. Patient's orthopeidc and medical care was provided daily. Patient had daily laboratory tests performed for evaluation of overall blood counts. Patient had daily physical therapy to include strengthening range of motion as well as education with walker ambulation. Patient was treated with Lovenox for their postoperative DVT prophylaxis during their inpatient stay. Patient was noted to have a relatively uneventful postoperative course. Patient reported satisfactory pain control with oral pain medications by postoperative day 0. Patient showed satisfactory progress with physical therapy. Patient moved steadily through the program and had no difficulty meeting the goals by postoperative day 1. Given patient's otherwise satisfactory course and having met physical therapy goals, plan is to discharge patient home on postoperative day 1. Discharge condition/disposition: Patient will be discharged home in stable condition. Discharge medications: Instructions are given on resumption of patient's normal daily medications per primary care recommendation, in addition patient will be prescribed Vergas 5 mg/325 mg, aspirin 325 mg. Discharge instructions: 1. Wound care and infection precautions, keep incision dry and covered while showering, no lotions, creams, moisturizers. No soaking, tubs, pools, hottubs. Do not scrub over the incision. 2. Weight-bear as tolerated with walker / cane until follow-up. 3. Ice and elevate when necessary. Do not exceed 20 minutes per hour with ice pack. 4. Utilize compression sleeve until seen at first follow up appointment. 5. Visiting nursing care. 6. Home physical therapy. 7. Pain meds and anticoagulants per prescription. 8. Pain medication has potential to cause constipation. Increase oral fluid and fiber intake. Contact primary care provider if you have not had a bowel movement within 48 hours after discharge 9. No anti-inflammatory medication until discussed at first post operative visit, this including Motrin, Aleve, Mobic, Diclofenac. 10. Follow up in office at 2 weeks postop with Cecilio Ugarte PA-C 11. Follow up with your primary care doctor 7-10 days after discharge. 12. Contact [facility] with any questions, . Procedures: Revision right total hip arthroplasty Patient Condition at Discharge: Good Plan - Discharge Summary Discharge Rx Participant: Yes New Discharge Prescriptions: New Aspirin 325 mg PO BID #60 tab Hydrocodone/Acetaminophen [Vergas 5-325] 1 each PO Q6HR PRN #20 tab PRN Reason: Pain Discontinued Aspirin 325 mg PO HS No Action Simvastatin [Zocor] 20 mg PO HS Insulin Detemir [Levemir] 80 unit SQ HS diphenhydrAMINE [Benadryl] 25 mg PO BID Insulin Aspart [NovoLOG (formulary)] 20 unit SQ TID-W/MEALS metFORMIN HCL 1,000 mg PO BID glipiZIDE [Glucotrol] 10 mg PO AC-BID Lisinopril [Zestril] 20 mg PO QAM Multivit-Min/FA/Lycopen/Lutein [Centrum Silver Tablet] 1 tab PO DAILY Mupirocin 2% Nasal Oint [Bactroban 2% Nasal Oint] 1 applic NASAL DAILY PRN PRN Reason: nasal bleeding Discharge Medication List Insulin Aspart [NovoLOG (formulary)] 20 unit SQ TID-W/MEALS 03/30/17 [History] Insulin Detemir [Levemir] 80 unit SQ HS 03/30/17 [History] Lisinopril [Zestril] 20 mg PO QAM 03/30/17 [History] Multivit-Min/FA/Lycopen/Lutein [Centrum Silver Tablet] 1 tab PO DAILY 03/30/17 [ History] Simvastatin [Zocor] 20 mg PO HS 03/30/17 [History] diphenhydrAMINE [Benadryl] 25 mg PO BID 03/30/17 [History] glipiZIDE [Glucotrol] 10 mg PO AC-BID 03/30/17 [History] metFORMIN HCL 1,000 mg PO BID 03/30/17 [History] Mupirocin 2% Nasal Oint [Bactroban 2% Nasal Oint] 1 applic NASAL DAILY PRN 07/20 [History] Aspirin 325 mg PO BID #60 tab 07/24/17 [Rx] Hydrocodone/Acetaminophen [Vergas 5-325] 1 each PO Q6HR PRN #20 tab 07/24/17 [Rx] Follow up Appointment(s)/Referral(s): Arjun Moss DO [Primary Care Provider] - 1 Week Shreyas Ugarte PAC [PHYSICIAN SOFT TILE SETTER] - 08/08/17 3:20 pm Activity/Diet/Wound Care/Special Instructions: Orthopedic Discharge Instructions: 1. Wound care and infection precautions, keep incision dry and covered while showering, no lotions, creams, moisturizers. No soaking, pools, hot tubs. Do not scrub over incision. 2. Weight-bear as tolerated with walker / cane until follow-up. 3. Ice and elevate when necessary. Do not exceed 20 minutes per hour with ice pack. 4. Utilize compression sleeve until seen at first follow up appointment. 5. Visiting nursing care. 6. Home physical therapy. 7. Pain meds and anticoagulants per prescription. 8. Pain medication has potential to cause constipation. Increase oral fluid and fiber intake. Contact primary care provider if you have not had a bowel movement within 48 hours after discharge. 9. No anti-inflammatory medication until discussed at first post operative visit, this including Motrin, Aleve, Mobic, Diclofenac. 10. Follow up in office at 2 weeks postop with Cecilio Ugarte PA-C 11. Follow up with your primary care doctor 7-10 days after discharge. 12. Contact [facility] with any questions, . Discharge Disposition: HOME WITH HOME HEALTH SERVICES
--- NOTE | 2017-07-24 10:49 | P.CONS ---
History of Present Illness - Reason for Consult Consult date: 07/24/17 medical management Requesting physician: Dao Lassiter - Chief Complaint Medical management - History of Present Illness 81-year-old male who has a history of right total hip arthroplasty on 05/15/2017. The patient had 2 dislocations postoperatively. The patient underwent a revision of the right total hip on 07/23/[address] Moss was consulted for medical management. The patient has a history of hypertension, hyperlipidemia, and diabetes mellitus. He is a former cigarette smoker. Patient's blood pressure was elevated last night and required an additional dose of lisinopril. Blood sugars have been slightly elevated with recent readings of 207 and 261. The patient was seen and examined at the bedside. He states his pain is tolerable at this time. He denies chest pain or shortness of breath. He states he is using his incentive spirometer 10 times an hour. He is anxious to work with physical therapy today. He is hoping to be discharged home this afternoon. Review of Systems GENERAL: Patient denies fever. Denies chills. EYES: Denies blurred vision. Denies vision changes. Denies eye pain. EARS, NOSE, MOUTH, & THROAT: Denies headache. Denies sore throat. Denies ear pain. RESPIRATORY: Denies cough. Denies shortness of breath. Denies sputum production. Denies hemoptysis. CARDIOVASCULAR: Denies chest pain or pressure. Denies palpitations. Denies arrhythmias. GASTROINTESTINAL: Denies abdominal pain. Denies diarrhea. Denies constipation. Denies nausea. Denies vomiting. Denies heartburn. Denies blood in the stool. GENITOURINARY: Denies urinary frequency. Denies burning. Denies dysuria. Denies cloudy urine. Denies blood in the urine. MUSCULOSKELETAL: Denies myalgias. Denies joint swelling. Denies decreased range of motion beyond patients baseline. INTEGUMENTARY: Denies pruitis. Denies rash. PSYCHIATRIC: Denies suicidal or homicial ideations. ENDOCRINE: Denies weight change. Denies polydipsia. Denies polyuria. HEMATOLOGIC: Denies bleeding disorders. Past Medical History Past Medical History: Cancer, Diabetes Mellitus, Hyperlipidemia, Hypertension Additional Past Medical History / Comment(s): rt hip disclocation x2,IDDM type II, gastric ulcer 30-40 yrs ago, skin cancer with removal, R cataract, occasional epistaxis L nare History of Any Multi-Drug Resistant Organisms: None Reported Past Surgical History: Joint Replacement, Orthopedic Surgery Additional Past Surgical History / Comment(s): 04/11/17 Total anterior R hip replacement, rt knee replacement x 2 (rods), left knee replacement, left shoulder surgery d/t tendon detachment, skin cancer removed from nose with skin graft, L cataract removed, colonoscopy with benign polyps in past. Past Anesthesia/Blood Transfusion Reactions: No Reported Reaction Past Psychological History: No Psychological Hx Reported Additional Psychological History / Comment(s): Pt resides with his spouse. They live in a one level home. Prior to his recent R hip surgery, pt was driving. Pt just completed home care. Smoking Status: Former smoker Past Alcohol Use History: Rare Additional Past Alcohol Use History / Comment(s): Pt started smoking in 1952 and quit in 1992. He was a ppd smoker. Past Drug Use History: None Reported - Past Family History Mother Family Medical History: No Reported History Additional Family Medical History / Comment(s): Mother at the age of 62 yrs , 5 months after her spouses and pt thinks that is why she . Father Family Medical History: No Reported History Additional Family Medical History / Comment(s): Pt states his father was healthy and that he at the age of 64yrs. Medications and Allergies Home Medications Medication Instructions Recorded Confirmed Type Insulin Aspart [NovoLOG 20 unit SQ TID-W/MEALS 03/30/17 07/23/17 History (formulary)] Insulin Detemir [Levemir] 80 unit SQ HS 03/30/17 07/23/17 History Lisinopril [Zestril] 20 mg PO QAM 03/30/17 07/23/17 History Multivit-Min/FA/Lycopen/Lutein 1 tab PO DAILY 03/30/17 07/23/17 History [Centrum Silver Tablet] Simvastatin [Zocor] 20 mg PO HS 03/30/17 07/23/17 History diphenhydrAMINE [Benadryl] 25 mg PO BID 03/30/17 07/23/17 History glipiZIDE [Glucotrol] 10 mg PO AC-BID 03/30/17 07/23/17 History metFORMIN HCL 1,000 mg PO BID 03/30/17 07/23/17 History Aspirin 325 mg PO HS 05/15/17 07/23/17 History Mupirocin 2% Nasal Oint [Bactroban 1 applic NASAL DAILY PRN 07/20/17 07/23/17 History 2% Nasal Oint] Allergies Allergy/AdvReac Type Severity Reaction Status Date / Time No Known Allergies Allergy Verified 07/23/17 18:22 Physical Exam Vitals: Vital Signs Temp Pulse Pulse Pulse Pulse Resp BP 07/24/17 07:13 97.5 F L 94 17 07/24/17 00:10 97.8 F 83 16 07/23/17 21:00 07/23/17 20:45 78 07/23/17 20:30 82 07/23/17 20:15 07/23/17 20:00 75 07/23/17 19:45 65 07/23/17 19:30 78 07/23/17 19:15 67 07/23/17 19:00 97 F L 97 16 07/23/17 18:42 95 18 07/23/17 18:27 96 18 07/23/17 18:12 95 16 07/23/17 17:57 97.5 F L 100 13 126/61 07/23/17 13:57 98.0 F 91 16 181/88 07/23/17 13:52 16 BP Pulse Ox 07/24/17 07:13 157/82 94 L 07/24/17 00:10 135/74 93 L 07/23/17 21:00 165/73 07/23/17 20:45 158/70 07/23/17 20:30 165/77 07/23/17 20:15 148/82 07/23/17 20:00 166/79 07/23/17 19:45 138/81 07/23/17 19:30 130/74 07/23/17 19:15 122/59 07/23/17 19:00 143/65 93 L 07/23/17 18:42 142/64 96 07/23/17 18:27 148/66 95 07/23/17 18:12 126/67 95 07/23/17 17:57 93 L 07/23/17 13:57 95 07/23/17 13:52 Intake and Output 06/11/18 06/12/18 06/12/18 22:59 06:59 14:59 Intake Total 1251 1000 Output Total 150 250 Balance 1101 750 Intake: IV 1151 Intake, IV Titration 100 Amount Lactated Ringers 1,000 ml 100 @ 50 mls/hr IV .Q20H [facility] Rx#:[id number] Oral 1000 Output: Urine 250 Estimated Blood Loss 150 Other: Voiding Method Toilet # Voids 1 GENERAL: This is a 81-year-old male in no apparent distress at the time of examination. Pleasant and cooperative. HEENT: Head is atraumatic, normocephalic. Pupils are equal, round, and reactive to light. Sclerae anicteric. Conjunctivae are clear. Mucus membranes of the mouth are moist. Neck is supple. RESPIRATORY: Clear to ausculation. No wheezes, rales, or rhonchi. No use of accessory muscles. Patient maintaining oxygen saturation greater than 92%. No chest wall tenderness is noted on palpation or with deep breathing. CARDIOVASCULAR: Regular rate and rhythm. S1 and S2 noted. No systolic or diastolic murmur auscultated. No JVD noted. No S3 or S4 noted. GASTROINTESTINAL: No distention noted. Abdomen soft and round. Normal active bowel sounds auscultated x 4 quadrants. No pain or tenderness noted upon palpation. INTEGUMENTARY: Dressing to right hip clean dry and intact. No drainage noted. No cyanosis. No jaundice. No rashes noted. No cellulitis noted. EXTREMITIES: 2+ peripheral pulses. No calf tenderness noted. NEUROLOGIC: Cranial nerves II-XII intact. PSYCHIATRIC: Awake, alert, and oriented X 3. Appropriate affect. Intact judgement and insight. Results CBC & Chem 7: 07/24/17 06:46 Labs: Abnormal Lab Results - Last 24 Hours (Table) 07/23/17 07/23/17 07/23/17 Range/Units 14:10 18:39 20:09 RBC (4.30-5.90) m/uL Hgb (13.0-17.5) gm/dL Hct (39.0-53.0) % Plt Count (150-450) k/uL Neutrophils # (1.3-7.7) k/uL Lymphocytes # (1.0-4.8) k/uL POC Glucose (mg/dL) 116 H 171 H 261 H (75-99) mg/dL 07/24/17 07/24/17 Range/Units 06:46 07:43 RBC 4.07 L (4.30-5.90) m/uL Hgb 12.3 L (13.0-17.5) gm/dL Hct 38.6 L (39.0-53.0) % Plt Count 143 L (150-450) k/uL Neutrophils # 7.9 H (1.3-7.7) k/uL Lymphocytes # 0.9 L (1.0-4.8) k/uL POC Glucose (mg/dL) 207 H (75-99) mg/dL Assessment and Plan Plan: ASSESSMENT: Revision of right total hip arthroplasty, POD #1, status post right total hip arthroplasty in 05/2017 with 2 dislocations postoperatively Hypertension Hyperlipidemia Diabetes mellitus, type II Obesity: BMI 36.7 PLAN: Continue postoperative management per Dr. Lassiter Home meds as appropriate NovoLog sliding scale AC/HS with insulin coverage Continue 80 units Levemir at night Add NovoLog 8 units with meals Pain control Activity as tolerated Monitor labs GI/DVT prophylaxis Monitor vital signs and address as appropriate Further recommendations pending patient's course Patient is cleared for discharge from medical standpoint when cleared by admitting physician. Patient is to resume his previous home medications at time of discharge. Nurse practitioner note has been reviewed by physician. Signing provider agrees with the documented findings, assessment, and plan of care.
[2017-07-24 11:42] LABS: Glucose,Whole Blood 170 mg/dL (75-99)
[2017-07-24] MEDS ORDERED: INSULIN ASPART 100 UNIT/ML 1 ML 10 ML VIAL SQ SCH (12:30)
[2017-07-24 17:58] LABS: Hemoglobin A1C 6.9 % (4.0-6.0)
== END 2017-07-24 13:37 | disposition home health service (06) | DRG 468 ==
LOC: 2ORMAIN 12:59 → 3SUR 18:17
PROVIDERS: ADMIT Orthopaedic Surgery; ATTEND Orthopaedic Surgery
PROC: 0SP90JZ Removal of Synthetic Substitute from Right Hip Joint, Open Approach (ICD-10-PCS; 2017-07-23)
PROC: 0SR904A Replacement of Right Hip Joint with Ceramic on Polyethylene Synthetic Substitute, Uncemented, Open Approach (ICD-10-PCS; principal; 2017-07-23 15:10)
DX: T84.020A Dislocation of internal right hip prosthesis, initial encounter (principal); E11.9 Type 2 diabetes mellitus without complications; E66.9 Obesity, unspecified; Z68.36 Body mass index [BMI] 36.0-36.9, adult; I10 Essential (primary) hypertension; H26.9 Unspecified cataract; E78.5 Hyperlipidemia, unspecified; Z79.82 Long term (current) use of aspirin; Z79.4 Long term (current) use of insulin; Z79.899 Other long term (current) drug therapy; Z96.653 Presence of artificial knee joint, bilateral; Z87.891 Personal history of nicotine dependence; Z87.11 Personal history of peptic ulcer disease; Z85.828 Personal history of other malignant neoplasm of skin; Z86.010 Personal history of colon polyps; Z98.42 Cataract extraction status, left eye; Y79.2 Prosthetic and other implants, materials and accessory orthopedic devices associated with adverse incidents
CPT/HCPCS: 73501; 83036; 85025

== ENCOUNTER → 2018-01-14 | Outpatient (CLI) | payer MEDICARE, BC ==
--- NOTE | 2018-01-14 13:54 | FL ---
COMPARISON: NONE DATE OF EXAM: 01/14/2018 HISTORY: Dysphasia A number of thin and thick substances were ingested under the care of the department of speech pathol ogy. There is aspiration and penetration upon ingestion of thin barium and deep penetration with sampsno lesauce. There is vallecular pooling with all substances. IMPRESSION: 1. See above.
== END | disposition home or self-care (01) ==
LOC: RADFLMAIN 10:17
PROVIDERS: ATTEND Psychiatry & Neurology Neurology
DX: I69.891 Dysphagia following other cerebrovascular disease (principal)
CPT/HCPCS: 74230

== ENCOUNTER → 2018-01-24 | Outpatient (CLI) | payer MEDICARE, BC ==
--- NOTE | 2018-01-24 12:12 | MR ---
EXAMINATION TYPE: MR brain wo/w con DATE OF EXAM: 01/24/2018 COMPARISON: CT brain 07/04/2017 HISTORY: CVA TECHNIQUE: Multiplanar, multisequence images of the brain and brainstem is performed without and with IV contras t, utilizing 12.5 mL intravenous Gadavist . FINDINGS: Diffusion weighted images demonstrate no evidence of a recent infarct or other diffusion ab normality. There is no extra-axial fluid collection. Periventricular confluent and scattered hyperi ntensities are present on inversion recovery T2-weighted sequences, there is some cortical and deep w rosa matter hyperintensities, central pontine intensity also noted. Approximately 20 lesions are pres ent, largest lesion in the periventricular, pericallosal lesion on axial image 22 measures 8 mm. The ventricular system and cisternal spaces are normal in size and appearance. The brain volume is age a ppropriate, there is cortical atrophy. Midline structures demonstrate normal morphology. The craniocervical junction appears within normal limits. Post contrast images demonstrate no abnormal enhancement. The dural venous sinuses appear pa tent. The visualized sinuses are clear and the globes are intact. IMPRESSION: Age-related changes of atrophy and probable chronic small vessel ischemic change.
== END | disposition home or self-care (01) ==
LOC: RADMRIMAIN 08:10
PROVIDERS: ATTEND Psychiatry & Neurology Neurology
DX: G31.1 Senile degeneration of brain, not elsewhere classified (principal); R13.10 Dysphagia, unspecified
CPT/HCPCS: 82565; 70553; A9585

== ENCOUNTER → 2018-02-01 | Outpatient (CLI) | payer MEDICARE, BC | END | disposition home or self-care (01) | LOC: LABWHC1 09:23 | PROVIDERS: ATTEND Psychiatry & Neurology Neurology | DX: R13.10 Dysphagia, unspecified (principal) | CPT/HCPCS: 36415; 82550 ==

== ENCOUNTER → 2018-02-08 | Outpatient (CLI) | payer MEDICARE, BC | LOC: LABWHC1 10:54 | PROVIDERS: ATTEND Psychiatry & Neurology Neurology | DX: Z53.9 Procedure and treatment not carried out, unspecified reason (principal) ==

== ENCOUNTER → 2018-02-20 | Outpatient (CLI) | payer MEDICARE, BC ==
--- NOTE | 2018-02-20 13:43 | CT ---
EXAMINATION TYPE: CT chest wo/w con DATE OF EXAM: 02/20/2018 COMPARISON: NONE HISTORY: Myasthenia gravis CT DLP: 1250.9 mGycm. Automated Exposure Control for Dose Reduction was Utilized. TECHNIQUE: CT scan of the thorax is performed following without and with IV Contrast, patient inject ed with 100 mL of Isovue M300. FINDINGS: LUNGS: Background mild underlying emphysematous changes felt present. There is mild biapical pleural/ parenchymal scarring. There are some patchy reticulonodular opacities or infiltrates throughout the r ight lower lobe and to a lesser degree medially in the left lower lobe. No pleural effusion or pneumo thorax is seen bilaterally. No suspicious pulmonary masses are identified. Tracheobronchial tree is p atent. MEDIASTINUM: There are no greater than 1 cm hilar or mediastinal lymph nodes. No suspicious anterior superior mediastinal mass or thymoma is identified. No cardiomegaly or pericardial effusion is seen . Moderate coronary artery calcification is seen which is noted marker for coronary artery disease. OTHER: Dependent gallstone in gallbladder is seen. Liver is slightly hypodense and lobulated in conto ur, correlate clinically to exclude underlying cirrhosis. No surrounding ascites is seen. Some cortic al thinning in visualized portion of both kidneys is noted. There are a few small simple appearing cy sts identified upper pole level both kidneys. There are diverticula in the visualized transverse colo n. Spine is straightened with with multilevel spurring on sagittal images. IMPRESSION: 1. No suspicious superior mediastinal mass to suggest thymoma. 2. Mild emphysematous and parenchymal scarring changes. Cannot exclude acute pulmonary infectious pro cess right lower lobe, correlate clinically. 3. Attention to liver as detailed above.
== END | disposition home or self-care (01) ==
LOC: RADCTMAIN 11:07
PROVIDERS: ATTEND Psychiatry & Neurology Neurology
DX: J43.9 Emphysema, unspecified (principal); J98.4 Other disorders of lung; G70.00 Myasthenia gravis without (acute) exacerbation
CPT/HCPCS: 82565; 84520; 71270; 36415; Q9967

== ENCOUNTER → 2018-08-20 | Outpatient (CLI) | payer MEDICARE, BC ==
--- NOTE | 2018-08-20 09:23 | US ---
EXAMINATION TYPE: US liver DATE OF EXAM: 08/20/2018 COMPARISON: CT dated 02/20/2018 CLINICAL HISTORY: K74.60 Cirrhosis. EXAM MEASUREMENTS: Liver Length: 17.2 cm Gallbladder Wall: 0.2 cm CBD: 0.6 cm Right Kidney: 12.1 x 6.7 x 5.0 cm Pancreas: hyperechoic Liver: Cirrhotic morphology of the liver with nodular contour; heterogeneous appearance to liver; fo janey, hypoechoic area = 1.8x 1.7 x 1.5 cm near gallbladder in segment IVb. Gallbladder: solid, hyperechoic, nonmobile and shadowing stone is noted in neck of gallbladder Evidence for sonographic Amezquita's sign: no CBD: wnl Right Kidney: multiple renal cysts with largest simple cyst imaged at superior cortex = 3.5 x 2.9 x 3.0cm; multiple, hyperechoic parallel foci noted within kidney may be vascular wall calcifications. IMPRESSION: 1. Cirrhotic morphology of liver with solitary hepatic lesion identified in segment IVb. Dynamic enha nced liver MRI is recommended for further evaluation. 2. Multiple renal cysts and probable vascular calcifications within the right kidney rather than nono bstructing calculi.
== END | disposition home or self-care (01) ==
LOC: RADUSWWP 08:05
PROVIDERS: ATTEND Family Medicine
DX: K74.60 Unspecified cirrhosis of liver (principal); N28.1 Cyst of kidney, acquired
CPT/HCPCS: 76705

== ENCOUNTER → 2018-10-05 | Outpatient (CLI) | payer MEDICARE, BC | END | disposition home or self-care (01) | LOC: RADMRIMAIN 09:09 | PROVIDERS: ATTEND Family Medicine | DX: Z53.9 Procedure and treatment not carried out, unspecified reason (principal) ==

== ENCOUNTER → 2020-04-07 | Outpatient (CLI) | payer MEDICARE, BC ==
[2020-04-07 11:11] LABS: Appearance,Urine Cloudy (Clear); Bacteria,Urine Many /hpf; Bilirubin,Urine Negative (Negative); Blood,Urine Negative (Negative); Color,Urine Yellow; Glucose,Urine (UA) 2+ (Negative); Ketones,Urine Negative (Negative); Leukocyte Esterase,Urine Large (Negative); Mucus,Urine Rare /hpf; Nitrite,Urine Negative (Negative); Protein,Urine Trace (Negative); RBC,Urine 2 /hpf (0-5); Specific Gravity,Urine 1.017 (1.001-1.035); Squamous Epithelial Cell,Urine 2 /hpf (0-4); Urobilinogen,Urine <2.0 mg/dL (<2.0); WBC,Urine 24 /hpf (0-5)
--- NOTE | 2020-04-07 12:03 | XR ---
EXAMINATION TYPE: XR chest 2V DATE OF EXAM: 04/07/2020 COMPARISON: 12/31/2013 HISTORY: 84-year-old male presurgical evaluation, scheduled for tumor removal from the kidney. Cough . TECHNIQUE: Frontal and lateral views FINDINGS: The cardiomediastinal silhouette, aorta, and pulmonary vasculature are within normal limits. Mild hyp erinflation. Lungs and pleural spaces are clear. IMPRESSION: Possible underlying COPD. No acute process seen.
== END | disposition home or self-care (01) ==
LOC: LABPAT 09:57
PROVIDERS: ATTEND Urology
DX: Z01.818 Encounter for other preprocedural examination (principal); D41.01 Neoplasm of uncertain behavior of right kidney; E11.9 Type 2 diabetes mellitus without complications
CPT/HCPCS: 71046; 81001; 86850; 86900; 86901; 87086

== ENCOUNTER 2020-04-15 05:51 | Observation (INO) | payer MEDICARE, BC ==
[2020-04-09 15:24] VITALS: BMI 36.6
--- NOTE | 2020-04-14 21:36 | P.HPIHPCON ---
History of Present Illness H&P Date: 04/14/20 Chief Complaint: right sided renal mass Mr Jeffries is an 84 yo male with hx of right sided renal mass. Discussed with him the option of active surveillance, cryoablation, radical nephrectomy and partial nephrectomy. Discussed with him benefit and risk of each approach. He agreed to proceed with robotic assisted laproscopic partial nephrectomy. Discussed risk of bleeding, infection, injury to nearby organs, risk from anesthesia, potential of converting to radical nephrectomy. He understood risk from anesthesia includes heart attack, stroke, blood clots and even . He understood all risk and agreed to proceed with robotic partial nephrectomy on the right Consent for Procedure: I have explained the operation/procedure to the patient, including the risks, benefits, side effects, alternative therapies (including not receiving the p roposed treatment or service), the likelihood of the patient achieving his/her goals, and potential recuperation problems for the procedure/sedation/analgesia, as well as any blood products, if indicated. I also explained to the patient the risks, benefits and side effects of the alternatives, as well as the risks related to not receiving the proposed procedure, care, treatment, or services. Past Medical History Past Medical History: Cancer, Diabetes Mellitus, Hearing Disorder / Deafness, Hyperlipidemia, Hypertension, Musculoskeletal Disorder Additional Past Medical History / Comment(s): rt hip disclocation x2, IDDM type II, gastric ulcer 30-40 yrs ago, hx skin cancer, hx occ epistaxis L nare. Rt kidney mass History of Any Multi-Drug Resistant Organisms: None Reported Past Surgical History: Joint Replacement, Orthopedic Surgery Additional Past Surgical History / Comment(s): 04/11/17 Total anterior R hip replacement, rt knee replacement x 2 (rods), lt knee replacement, left shoulder surgery d/t tendon detachment, skin cancer exc nose w/ skin graft, bilat cataract removed, colonoscopy - benign polyps Past Anesthesia/Blood Transfusion Reactions: No Reported Reaction Smoking Status: Former smoker - Past Family History Mother Family Medical History: No Reported History Additional Family Medical History / Comment(s): Mother at the age of 62 yrs, 5 months after her spouses and pt thinks that is why she . Father Family Medical History: No Reported History Additional Family Medical History / Comment(s): Pt states his father was healthy and that he at the age of 64yrs. Medications and Allergies Home Medications Medication Instructions Recorded Confirmed Type INSULIN ASPART (NovoLOG) [NovoLOG 20 unit SQ TID-W/MEALS 03/30/17 04/09/20 History (formulary)] Insulin Detemir (Levemir) [Levemir] 30 - 60 unit SQ HS 03/30/17 04/09/20 History Multivit-Min/FA/Lycopen/Lutein 1 tab PO DAILY 03/30/17 04/09/20 History [Centrum Silver Tablet] Simvastatin [Zocor] 20 mg PO HS 03/30/17 04/09/20 History glipiZIDE [Glucotrol] 10 mg PO AC-BID 03/30/17 04/09/20 History metFORMIN HCL 1,000 mg PO BID 03/30/17 04/09/20 History Acetaminophen [Tylenol Extra 1,500 mg PO HS 04/09/20 04/09/20 History Strength] Aspirin 325 mg PO HS 04/09/20 04/09/20 History Docusate [Colace] 100 mg PO HS 04/09/20 04/09/20 History Losartan Potassium [Cozaar] 100 mg PO DAILY 04/09/20 04/09/20 History amLODIPine [Norvasc] 5 mg PO HS 04/09/20 04/09/20 History hydroCHLOROthiazide [Hydrodiuril] 25 mg PO DAILY 04/09/20 04/09/20 History Allergies Allergy/AdvReac Type Severity Reaction Status Date / Time No Known Allergies Allergy Verified 04/09/20 14:42 Surgical - Exam - General well developed, well nourished, no distress, no pain - Respiratory normal expansion, normal respiratory effort - Psychiatric oriented to time, oriented to person, oriented to place Assessment and Plan Assessment: 84 yo hx of right sided renal mass -OR for robotic partial nephrectomy on right
[~2020-04-15 05:51] MED LIST changes: -ACETAMINOPHEN TAB 500 MG TAB PO ONE; -DEXAMETHASONE SOD PHOSPHATE 10 MG/ML 1 ML VIAL IV ONE; -HYDROmorphone 0.5 MG/0.5 ML SYRINGE IVP PRN; -MELOXICAM 7.5 MG TAB PO ONE; -MIDAZOLAM 2 MG/2 ML VIAL IV PRN; -ONDANSETRON 4 MG/2 ML VIAL IVP ONE; -ONDANSETRON 4 MG/2 ML VIAL IVP PRN; -SCOPOLAMINE 1.5MG/72HR PATCH TRANSDERM ONE; -TRANEXAMIC ACID 1,000 MG in SODIUM CHLORIDE 0.9% 50 ML IVPB ONE; +ceFAZolin 3 GM in SODIUM CHLORIDE 0.9% 100 ML IVPB PRN; -fentaNYL (PF) 50 MCG/ML 2 ML AMP IV PRN
[2020-04-15] MEDS ORDERED: HEPARIN SODIUM,PORCINE 5,000 UNIT/ML 1 ML VIAL SQ PRN (06:00)
[2020-04-15 06:52] LABS: Glucose,Whole Blood 216 mg/dL (75-99)
[2020-04-15] MEDS ORDERED: ONDANSETRON 4 MG/2 ML VIAL IVP PRN (07:00)
[2020-04-15] MEDS ORDERED: LIDOCAINE 1% (10MG/ML) FOR IV START INTRADERMA PRN (07:00)
[2020-04-15] MEDS ORDERED: LACTATED RINGERS 1,000 ML IV SCH (07:00)
[2020-04-15] MEDS ORDERED: HYDROmorphone 0.5 MG/0.5 ML SYRINGE IVP PRN (07:00)
[2020-04-15] MEDS ORDERED: MIDAZOLAM 2 MG/2 ML VIAL IVP ONE ×2 (07:08)
[2020-04-15] MEDS ORDERED: DEXAMETHASONE SOD PHOSPHATE 4 MG/ML 1 ML VIAL IVP ONE (07:23)
[2020-04-15] MEDS ORDERED: BUPIVACAIN-EPI 0.5%-1:200,000 30 ML VIAL SQ ONE ×2 (07:44→11:35)
[2020-04-15] MEDS ORDERED: LIDOCAINE 1% INJ 10MG/ML (20 ML MDV) ONE (10:39)
[2020-04-15] MEDS ORDERED: SUCCINYLCHOLINE CHLORIDE VIAL 200 MG/10 ML VIAL IV ONE (10:39)
[2020-04-15] MEDS ORDERED: PHENYLEPHRINE-0.9% NACL SYG 1,000 MCG/10 ML SYRINGE ONE (10:39)
[2020-04-15] MEDS ORDERED: ROPIVACAINE 5 MG/ML 30 ML VIAL ONE (10:39)
[2020-04-15] MEDS ORDERED: MANNITOL 25% 12.5 GM/50 ML VIAL ONE (10:39)
[2020-04-15] MEDS ORDERED: ROCURONIUM 10 MG/ML (5 ML VIAL) IV ONE (10:39)
[2020-04-15] MEDS ORDERED: PROPOFOL 10 MG/ML 20 ML VIAL IV ONE (10:39)
[2020-04-15] MEDS ORDERED: NEOSTIGMINE 1 MG/ML 10 ML VIAL ONE (10:39)
[2020-04-15] MEDS ORDERED: GLYCOPYRROLATE 0.2 MG/ML 2 ML VIAL ONE (10:39)
[2020-04-15] MEDS ORDERED: fentaNYL (PF) 50 MCG/ML 2 ML AMP ONE (10:39)
--- NOTE | 2020-04-15 11:44 | P.OP ---
Date of Procedure: 04/15/20 Preoperative Diagnosis: Right renal mass Postoperative Diagnosis: same Procedure(s) Performed: Robotic-assisted laparoscopic partial nephrectomy on the right Implants: none Anesthesia: ROBERTA Surgeon: Modesto Danielle Power Transmission Engineer #1: [place] Estimated Blood Loss (ml): 50 Pathology: other (renal tumor) Condition: stable Disposition: PACU Indications for Procedure: Mr Jeffries is an 84 yo male with hx of 3.1 cm right sided renal mass. Discussed with him the option of active surveillance, cryoablation, radical nephrectomy and partial nephrectomy. Discussed with him benefit and risk of each approach. He agreed to proceed with robotic assisted laproscopic partial nephrectomy. Discussed risk of bleeding, infection, injury to nearby organs, risk from anesthesia, potential of converting to radical nephrectomy. He unde rstood risk from anesthesia includes heart attack, stroke, blood clots and even . He understood all risk and agreed to proceed with robotic partial nephrectomy on the right Operative Findings: right sided partially exophytic renal tumor in the midpole Description of Procedure: The patient was taken to the operating room . General anesthesia was induced. He was prepped and draped in sterile fashion, and was placed in modified flank position . All pressure points were padded. The abdominal insufflation was achieved with the Veress needle. A 8 mm camera port was placed. Robotic trocars and perioperative assistant ports were placed under direct vision. a 5 mm liver retractor was placed. . The robot was docked into place. Of note the patient liver was cirrhotic. The colon was mobilized medially by incising along the white line of Toldt. Next the duodenum was kocherized. At this time the vena cava was exposed. Next the ureter was retracted anteriorly off the psoas muscle. Dissection proceeded cranially towards the renal hilum. The renal vein was identified, and the renal artery was located posterior to the vein. The renal ARTERY was dissected in preparation for clamping. At this time incision was made in the gerota and the fat was dissected off of the kidney. Of note the patient gerota fat was pretty adherent to the renal capsule, the tumor was identified in the midpole, and was partially exophytic. At this time the attention was carried back to the renal artery and it was clamped using 2 bulldogs. Next attention was carried to the tumor, tumor edges were incised sharply, the tumor was enucleated off of the parenchyma and sent to pathology. Of note there was too small thrombus in the intrarenal veins that were also removed. The defect was closed in 2 layer using 3-0V lock for the inner layer and 2-0V lock for the outer layer. The bulldogs were removed, total clamp time was 26 minutes. Hemostatic agent were applied to the tumor defect. After clamp removal there was no evidence of bleeding. 10-Tajik flat MATTI was placed through the RLQ , through the prograsp arm. All needle counts were correct The robot was then de-docked and the specimen was then removed through the perioperative assistant arm. the specimen was sent to pathology Fascia was closed using 0 Vicryl in figure of eight fashion. Skin was closed with subcuticular sutures and dermabond. MATTI drain was secured using 2-0 silk The patient was awoken from general anesthesia in stable condition. Please refer to the final pathology report for final diagnosis
[2020-04-15 11:51] LABS: Glucose,Whole Blood 264 mg/dL (75-99)
[2020-04-15] MEDS ORDERED: INSULIN ASPART (NovoLOG) 100 UNIT/ML VIAL SQ ONE (12:05)
[2020-04-15] MEDS: LOSARTAN 50 MG TAB PO SCH (13:30)
[2020-04-15] MEDS: metFORMIN 500 MG TAB PO SCH ×2 (13:38→20:10)
[2020-04-15] MEDS: methocarbamoL 750 MG TAB PO SCH ×3 (13:44→21:59)
[2020-04-15] MEDS: SODIUM CHLORIDE 0.9% 1,000 ML IV SCH (13:44)
[2020-04-15 16:53] LABS: Glucose,Whole Blood 252 mg/dL (75-99)
[2020-04-15] MEDS: INSULIN ASPART (NovoLOG) 100 UNIT/ML VIAL SQ SCH ×2 (17:59→20:10)
[2020-04-15] MEDS: HEPARIN SODIUM,PORCINE 5,000 UNIT/ML 1 ML VIAL SQ SCH ×2 (18:00→23:58)
[2020-04-15] MEDS: glipiZIDE 10 MG TAB PO SCH (18:01)
--- NOTE | 2020-04-15 18:18 | P.ANPRN ---
Procedure Note - Anesthesia - Nerve Block Performed Right Erector Spinae Single Time Out Performed: Yes Date of Procedure: 04/15/20 Procedure Start Time: 07:08 Procedure Stop Time: 07:14 Location of Patient: PreOp Indication: Acute Post-Operative Pain, Requested by Surgeon Sedation Type: Sedate with meaningful contact maintained Preparation: Sterile Prep Position: Sitting Needle Types: Pajunk Needle Gauge: 21 Ultrasound used to visualize needle placement: Yes Ultrasound used to observe medication spread: Yes Blood Aspirated: No Pain Paresthesia on Injection Noted: No Resistance on Injection: Normal Image Stored and Saved: Yes Events: Uneventful and Well Tolerated (ropi .25% 30cc)
[2020-04-15 20:02] LABS: Glucose,Whole Blood 310 mg/dL (75-99)
[2020-04-15] MEDS: INSULIN DETEMIR (LEVEMIR) 100 UNIT/ML SYR SQ SCH (20:09)
[2020-04-15] MEDS: amLODIPine 5 MG TAB PO SCH (20:10)
[2020-04-15] MEDS: ATORVASTATIN 10 MG TAB PO SCH (20:10)
[2020-04-15] MEDS ORDERED: INSULIN DETEMIR (LEVEMIR) 100 UNIT/ML SYR SQ SCH (21:00)
[2020-04-15 21:51] LABS: Calcium 8.9 mg/dL (8.4-10.2)
[2020-04-15 22:12] LABS: HCT 39.9 % (39.0-53.0); HGB 12.9 gm/dL (13.0-17.5); MCH 31.6 pg (25.0-35.0); MCHC 32.5 g/dL (31.0-37.0); MCV 97.2 fL (80.0-100.0); Mean Platelet Volume 8.8; Platelet Count 109 k/uL (150-450); RDW 13.6 % (11.5-15.5); WBC 7.9 k/uL (3.8-10.6)
[2020-04-16] MEDS: SODIUM CHLORIDE 0.9% 1,000 ML IV SCH ×2 (02:46→15:27)
[2020-04-16 07:08] LABS: Glucose,Whole Blood 173 mg/dL (75-99)
[2020-04-16] MEDS: INSULIN ASPART (NovoLOG) 100 UNIT/ML VIAL SQ SCH ×4 (08:20→22:53)
[2020-04-16] MEDS: metFORMIN 500 MG TAB PO SCH ×2 (08:21→22:46)
[2020-04-16] MEDS: LOSARTAN 50 MG TAB PO SCH (08:21)
[2020-04-16] MEDS: HYDROcodone/APAP 5-325MG 1 EACH TAB PO PRN ×4 (08:21→22:46)
[2020-04-16] MEDS: HEPARIN SODIUM,PORCINE 5,000 UNIT/ML 1 ML VIAL SQ SCH ×3 (08:22→22:54)
[2020-04-16] MEDS: glipiZIDE 10 MG TAB PO SCH ×2 (08:22→18:33)
[2020-04-16] MEDS: methocarbamoL 750 MG TAB PO SCH ×4 (08:22→22:47)
--- NOTE | 2020-04-16 10:44 | P.PN ---
Subjective Progress Note Date: 04/16/20 Principal diagnosis: POD #1, s/p robotic-assisted laparoscopic right partial nephrectomy The patient's condition is been stable overnight. He reports incisional discomfort. He denies nausea, chest pain, and shortness of breath. Objective - Vital Signs Vital signs: Vital Signs Temp 98.4 F 04/16/20 04:06 Pulse 81 04/16/20 04:06 Resp 18 04/16/20 04:06 BP 162/68 04/16/20 04:06 Pulse Ox 92 L 04/16/20 04:06 Intake & Output 04/15/20 04/16/20 04/16/20 18:59 06:59 18:59 Intake Total 2080 2220 Output Total 870 935 90 Balance 1210 1285 -90 Weight 131.8 kg Intake: IV 1300 Intake, IV Titration 300 900 Amount Sodium Chloride 0.9% 1, 300 900 000 ml @ 75 mls/hr IV . [id number] [facility] Rx#:[id number] Oral 480 1320 Output: Drainage 120 235 90 Right Lower Abdomen 120 235 90 Urine 700 700 Uretheral (Payan) 700 Estimated Blood Loss 50 Other: Voiding Method Indwelling Catheter - Constitutional General appearance: Present: cooperative, no acute distress - Gastrointestinal Gastrointestinal Comment(s): Soft, non-distended. Incisions clean, dry, and intact - Labs CBC & Chem 7: 04/15/20 21:28 04/15/20 21:28 Labs: Abnormal Lab Results - Last 24 Hours (Table) 04/15/20 04/15/20 04/15/20 Range/Units 11:49 16:51 20:01 RBC (4.30-5.90) m/uL Hgb (13.0-17.5) gm/dL Plt Count (150-450) k/uL BUN (9-20) mg/dL Creatinine (0.66-1.25) mg/dL Glucose (74-99) mg/dL POC Glucose (mg/dL) 264 H 252 H 310 H (75-99) mg/dL 04/15/20 04/15/20 04/16/20 Range/Units 21:28 21:28 07:06 RBC 4.10 L (4.30-5.90) m/uL Hgb 12.9 L (13.0-17.5) gm/dL Plt Count 109 L (150-450) k/uL BUN 24 H (9-20) mg/dL Creatinine 1.64 H (0.66-1.25) mg/dL Glucose 343 H (74-99) mg/dL POC Glucose (mg/dL) 173 H (75-99) mg/dL Assessment and Plan (1) Right renal mass Current Visit: Yes Status: Acute Code(s): N28.89 - OTHER SPECIFIED DISORDERS OF KIDNEY AND URETER SNOMED Code(s): 592715863 Plan: The Payan catheter will be removed. Diet will be advanced as tolerated. Ambulation is encouraged. MATTI drainage will continue to be monitored. Discharge home tomorrow is anticipated.
[2020-04-16 11:40] LABS: Glucose,Whole Blood 176 mg/dL (75-99)
--- NOTE | 2020-04-16 15:03 | P.CONS ---
History of Present Illness - Reason for Consult Consult date: 04/16/20 Requesting physician: Eliezer Monsalve - Chief Complaint renal mass, s/p right nephrect. - History of Present Illness This is an 84-year-old gentleman POD #1 right partial nephrectomy secondary to right-sided renal mass in a patient with past medical history of diabetes mellit us, skin cancer, hearing disorder/stiffness, hypertension, hyperlipidemia, former nicotine dependence and multiple other medical issues. Tolerated procedure well. Maintained on gentle IV fluid hydration.Creatinine 1.64 yesterday. Complains of feeling bloated. Pain controlled. Afebrile, normal WB C. Good diet intake with no nausea vomiting or diarrhea. Passing flatus. Hyperglycemic with blood sugars better controlled this morning. Denies chest pain, palpitations or shortness of breath. Review of Systems Constitutional: Denied any fatigue denied any fever. Cardio vascular: denied any chest pain, palpitations Gastrointestinal denied any nausea vomiting Pulmonary: Denied any shortness of breath cough Neurologic denied any new focal deficits ROS Statement: Those systems with pertinent positive or pertinent negative responses have been documented in the HPI. ROS Other: All systems not noted in ROS Statement are negative. Past Medical History Past Medical History: Cancer, Diabetes Mellitus, Hearing Disorder / Deafness, Hyperlipidemia, Hypertension, Musculoskeletal Disorder Additional Past Medical History / Comment(s): right hip disclocation x2, IDDM type II, gastric ulcer 30-40 yrs ago, hx skin cancer, hx occ epistaxis L nare, Rt kidney mass History of Any Multi-Drug Resistant Organisms: None Reported Past Surgical History: Joint Replacement, Orthopedic Surgery Additional Past Surgical History / Comment(s): 04/11/17 Total anterior R hip replacement, rt knee replacement x 2 (rods), lt knee replacement, left shoulder surgery d/t tendon detachment, skin cancer exc nose w/ skin graft, bilat cataract removed, colonoscopy - benign polyps, 04/15/20 right partial nephrectomy for kidney mass Past Anesthesia/Blood Transfusion Reactions: No Reported Reaction Past Psychological History: No Psychological Hx Reported Additional Psychological History / Comment(s): Pt resides with his spouse. They live in a one level home. Prior to his recent R hip surgery, pt was driving. Pt just completed home care. Smoking Status: Former smoker Past Alcohol Use History: Rare Additional Past Alcohol Use History / Comment(s): Smoked 1953 - 1992, 1 ppd smoker. Past Drug Use History: None Reported - Past Family History Mother Family Medical History: No Reported History Additional Family Medical History / Comment(s): Mother at the age of 62 yrs, 5 months after her spouses and pt thinks that is why she . Father Family Medical History: No Reported History Additional Family Medical History / Comment(s): Pt states his father was healthy and that he at the age of 64yrs. Medications and Allergies Home Medications Medication Instructions Recorded Confirmed Type INSULIN ASPART (NovoLOG) [NovoLOG 20 unit SQ TID-W/MEALS 03/30/17 04/15/20 History (formulary)] Insulin Detemir (Levemir) [Levemir] 30 - 60 unit SQ HS 03/30/17 04/15/20 History Multivit-Min/FA/Lycopen/Lutein 1 tab PO DAILY 03/30/17 04/15/20 History [Centrum Silver Tablet] Simvastatin [Zocor] 20 mg PO HS 03/30/17 04/15/20 History glipiZIDE [Glucotrol] 10 mg PO AC-BID 03/30/17 04/15/20 History metFORMIN HCL 1,000 mg PO BID 03/30/17 04/15/20 History Acetaminophen [Tylenol Extra 1,500 mg PO HS 04/09/20 04/15/20 History Strength] Aspirin 325 mg PO HS 04/09/20 04/15/20 History Docusate [Colace] 100 mg PO HS 04/09/20 04/15/20 History Losartan Potassium [Cozaar] 100 mg PO DAILY 04/09/20 04/15/20 History amLODIPine [Norvasc] 5 mg PO HS 04/09/20 04/15/20 History hydroCHLOROthiazide [Hydrodiuril] 25 mg PO DAILY 04/09/20 04/15/20 History Allergies Allergy/AdvReac Type Severity Reaction Status Date / Time No Known Allergies Allergy Verified 04/15/20 06:26 Physical Exam Vitals: Vital Signs Temp Pulse Pulse Resp BP BP Pulse Ox 04/16/20 04:06 98.4 F 81 18 162/68 92 L 04/15/20 19:58 98.3 F 81 18 161/72 96 04/15/20 14:00 89 18 173/81 95 04/15/20 13:47 86 18 152/71 95 04/15/20 13:15 97.9 F 82 17 163/80 95 04/15/20 12:45 77 16 162/77 99 04/15/20 12:30 83 18 160/70 95 04/15/20 12:15 79 16 162/70 97 04/15/20 12:00 82 18 158/85 97 04/15/20 11:45 98 F 97 18 158/85 97 Intake and Output 04/15/20 04/16/20 04/16/20 22:59 06:59 14:59 Intake Total 1620 1380 Output Total 860 845 90 Balance 760 535 -90 Intake: Intake, IV Titration 300 900 Amount Sodium Chloride 0.9% 1, 300 900 000 ml @ 75 mls/hr IV . [id number] [facility] Rx#:[id number] Oral 1320 480 Output: Drainage 210 145 90 Right Lower Abdomen 210 145 90 Urine 650 700 Uretheral (Payan) 700 Other: Voiding Method Indwelling Catheter PHYSICAL EXAM: VITAL SIGNS: As above GENERAL: Sitting up in chair, no acute distress HEENT: Conjunctivae normal. Oral mucosa moist.NECK: Supple, No JVD. CARDIOVASCULAR: S1, S2 regular.No murmur RESPIRATION: Breath sounds diminished in the bases. No rhonchi or crackles. No bronchial breathing. ABDOMEN: Soft, obese, nontender . No guarding. no masses palpable. Positive bowel sounds. LEGS: No edema. no swelling, no calf tenderness. PSYCHIATRY: Alert and oriented X3, mood and affect normal. NERVOUS SYSTEM: Cranial N 2-12 grossly normal. Moves all 4 limbs. No focal deficits. Strength and sensation grossly intact.. Skin: Warm and dry, no rash Results CBC & Chem 7: 04/15/20 21:28 04/15/20 21:28 Labs: Abnormal Lab Results - Last 24 Hours (Table) 04/15/20 04/15/20 04/15/20 Range/Units 11:49 16:51 20:01 RBC (4.30-5.90) m/uL Hgb (13.0-17.5) gm/dL Plt Count (150-450) k/uL BUN (9-20) mg/dL Creatinine (0.66-1.25) mg/dL Glucose (74-99) mg/dL POC Glucose (mg/dL) 264 H 252 H 310 H (75-99) mg/dL 04/15/20 04/15/20 04/16/20 Range/Units 21:28 21:28 07:06 RBC 4.10 L (4.30-5.90) m/uL Hgb 12.9 L (13.0-17.5) gm/dL Plt Count 109 L (150-450) k/uL BUN 24 H (9-20) mg/dL Creatinine 1.64 H (0.66-1.25) mg/dL Glucose 343 H (74-99) mg/dL POC Glucose (mg/dL) 173 H (75-99) mg/dL Assessment and Plan Assessment: Right kidney mass, status post right partial nephrectomy, pathology pending. Diabetes mellitus type 2 History of gastric ulcer Hypertension Hyperlipidemia Morbid obesity, BMI 37.3 Hard of hearing Former nicotine dependence Plan: Continue on current medication regime ,monitoring and symptomatic treatment. Pain management. DVT prophylaxis in place with heparin subcu. Protonix added for GI prophylaxis. Close monitoring of Accu-Cheks. Increase ambulation as tolerated. Discharge planning in progress for tomorrow per primary. Thank you Dr. Painter for the consult. The impression and plan of care has been dictated as directed. .: I performed a history and examination of this patient, discussed the same with the dictator. I agree with the dictator's note ,documented as a scribe. Any additional findings or plans will be noted.
[2020-04-16] MEDS: PANTOPRAZOLE 40 MG/10 ML VIAL IVP SCH (15:40)
[2020-04-16 17:49] LABS: Glucose,Whole Blood 177 mg/dL (75-99)
[2020-04-16 20:43] LABS: Glucose,Whole Blood 268 mg/dL (75-99)
[2020-04-16] MEDS: ATORVASTATIN 10 MG TAB PO SCH (22:46)
[2020-04-16] MEDS: amLODIPine 5 MG TAB PO SCH (22:47)
[2020-04-16] MEDS: INSULIN DETEMIR (LEVEMIR) 100 UNIT/ML SYR SQ SCH (22:47)
[2020-04-17] MEDS: HYDROcodone/APAP 5-325MG 1 EACH TAB PO PRN ×2 (03:16→08:09)
[2020-04-17] MEDS: SODIUM CHLORIDE 0.9% 1,000 ML IV SCH (04:12)
[2020-04-17 05:22] VITALS: BP 145/72; PULSE 94; RESP 18; TEMP 98.4
[2020-04-17] MEDS: INSULIN ASPART (NovoLOG) 100 UNIT/ML VIAL SQ SCH (07:47)
[2020-04-17 07:48] LABS: Glucose,Whole Blood 130 mg/dL (75-99)
[2020-04-17] MEDS: glipiZIDE 10 MG TAB PO SCH (08:09)
[2020-04-17] MEDS: methocarbamoL 750 MG TAB PO SCH (08:09)
[2020-04-17] MEDS: HEPARIN SODIUM,PORCINE 5,000 UNIT/ML 1 ML VIAL SQ SCH (08:10)
[2020-04-17] MEDS: LOSARTAN 50 MG TAB PO SCH (08:10)
[2020-04-17] MEDS: PANTOPRAZOLE 40 MG/10 ML VIAL IVP SCH (08:10)
[2020-04-17] MEDS: metFORMIN 500 MG TAB PO SCH (08:10)
--- NOTE | 2020-04-17 13:41 | P.DS ---
Providers Date of admission: 04/16/20 14:03 Expected date of discharge: 04/17/20 Attending physician: Modesto Danielle MD Consults: 04/16/20 08:12 Consult Physician Routine Consulting Provider: Arjun Moss Consult Reason/Comments: Medical Management Do you want consulting provider notified?: Already Contacted Primary care physician: Arjun Moss - Discharge Diagnosis(es) (1) Right renal mass Status: Acute Hospital Course: On the day of admission, the patient underwent an uncomplicated robotic-assisted laparoscopic right partial nephrectomy. The perioperative course was unremarkable. The patient had only 1 low-grade fever in the postoperative period. His vital signs remained stable, and he was afebrile at the time of discharge. He reported upper abdominal discomfort on the first postoperative day, which was improved on the second postoperative day. He stated that his pain was well-controlled by [place]. He was tolerating diet and ambulating. The abdomen was soft and non-distended. The incisions were clean and dry. MATTI drainage was approximately 700 mL in the 24 hours prior to discharge. In view of this, he will be discharged home with the MATTI drain, and MATTI drainage fluid was sent for a creatinine level. Procedures: Robotic-Assisted Laparoscopic RIght Partial Nephrectomy on 04/15/2020. Patient Condition at Discharge: Fair Plan - Discharge Summary Discharge Rx Participant: Yes New Discharge Prescriptions: New HYDROcodone/APAP 5-325MG [[place] 5-325] 1 tab PO Q6HR PRN 3 Days #12 tab PRN Reason: Moderate To Severe Pain No Action Simvastatin [Zocor] 20 mg PO HS Insulin Detemir (Levemir) [Levemir] 30 - 60 unit SQ HS INSULIN ASPART (NovoLOG) [NovoLOG (formulary)] 20 unit SQ TID-W/MEALS metFORMIN HCL 1,000 mg PO BID glipiZIDE [Glucotrol] 10 mg PO AC-BID Multivit-Min/FA/Lycopen/Lutein [Centrum Silver Tablet] 1 tab PO DAILY Acetaminophen [Tylenol Extra Strength] 1,500 mg PO HS amLODIPine [Norvasc] 5 mg PO HS Aspirin 325 mg PO HS Docusate [Colace] 100 mg PO HS hydroCHLOROthiazide [Hydrodiuril] 25 mg PO DAILY Losartan Potassium [Cozaar] 100 mg PO DAILY Discharge Medication List INSULIN ASPART (NovoLOG) [NovoLOG (formulary)] 20 unit SQ TID-W/MEALS 03/30/17 [History] Insulin Detemir (Levemir) [Levemir] 30 - 60 unit SQ HS 03/30/17 [History] Multivit-Min/FA/Lycopen/Lutein [Centrum Silver Tablet] 1 tab PO DAILY 03/30/17 [History] Simvastatin [Zocor] 20 mg PO HS 03/30/17 [History] glipiZIDE [Glucotrol] 10 mg PO AC-BID 03/30/17 [History] metFORMIN HCL 1,000 mg PO BID 03/30/17 [History] Acetaminophen [Tylenol Extra Strength] 1,500 mg PO HS 04/09/20 [History] Aspirin 325 mg PO HS 04/09/20 [History] Docusate [Colace] 100 mg PO HS 04/09/20 [History] Losartan Potassium [Cozaar] 100 mg PO DAILY 04/09/20 [History] amLODIPine [Norvasc] 5 mg PO HS 04/09/20 [History] hydroCHLOROthiazide [Hydrodiuril] 25 mg PO DAILY 04/09/20 [History] HYDROcodone/APAP 5-325MG [[place] 5-325] 1 tab PO Q6HR PRN 3 Days #12 tab 04/17/20 [Rx] Patient Instructions/Handouts: Hydrocodone/Acetaminophen (By mouth), Jiym- [place] Drain Care (DC), Laparoscopic Partial Nephrectomy (DC) Activity/Diet/Wound Care/Special Instructions: Discharge home with MATTI drain. Instruct patient to measure and record MATTI output. No lifting, driving, or strenuous activity. Patient to call Dr. Danielle on 04/19/2020. Discharge Disposition: HOME SELF-CARE
--- NOTE | 2020-04-17 18:04 | PN ---
PROGRESS NOTE DATE OF SERVICE: 04/17/2020 I am covering for Dr. Moss. This 84-year-old gentleman who was admitted after right kidney mass and nephrectomy is improving significantly. No chest pain. No palpitations. No fever. PHYSICAL EXAMINATION: Alert and oriented x3. The pulse is 80. Blood pressure 128/89, respiration 20. Temp is normal. HEENT: Conjunctivae normal. NECK: No JVD. CARDIOVASCULAR: S1, S2. RESPIRATORY: Breath sounds diminished in the bases. No rhonchi. No crackles. ABDOMEN: Soft, nontender. LEGS: No edema. No swelling. NERVOUS SYSTEM: No focal deficits. LABS: Noted. ASSESSMENT: 1. Right kidney mass status post right partial nephrectomy. 2. Diabetes mellitus type 2. 3. History of gastric ulcer. 4. Hypertension. 5. Hyperlipidemia. 6. Morbid obesity. 7. Hard of hearing. 8. History of nicotine dependence. RECOMMENDATIONS AND DISCUSSION: Continue current medications, symptomatic treatment. Otherwise, at this time, resume the home medications. Incentive spirometry. DVT prophylaxis. The rest of the recommendations per Urology. Further recommendations to follow. MMODL / IJN: [id number] /
== END 2020-04-17 13:24 | disposition home or self-care (01) ==
LOC: OR 05:51 → 5NMEDONC 11:44 → OR 04-16 14:03
PROVIDERS: ADMIT Urology; ATTEND Urology
DX: C64.1 Malignant neoplasm of right kidney, except renal pelvis (principal); I10 Essential (primary) hypertension; E78.5 Hyperlipidemia, unspecified; E11.9 Type 2 diabetes mellitus without complications; Z87.11 Personal history of peptic ulcer disease; Z85.828 Personal history of other malignant neoplasm of skin; H91.90 Unspecified hearing loss, unspecified ear; Z96.641 Presence of right artificial hip joint; Z96.653 Presence of artificial knee joint, bilateral; Z86.010 Personal history of colon polyps; Z98.42 Cataract extraction status, left eye; Z98.41 Cataract extraction status, right eye; Z79.82 Long term (current) use of aspirin; Z79.4 Long term (current) use of insulin; Z79.899 Other long term (current) drug therapy; E11.65 Type 2 diabetes mellitus with hyperglycemia; Z87.891 Personal history of nicotine dependence; E66.01 Morbid (severe) obesity due to excess calories; Z68.37 Body mass index [BMI] 37.0-37.9, adult; R50.9 Fever, unspecified
CPT/HCPCS: 50543; 64461; 76942; 80048; 85027; 88307; G0378 ×2; C1762; J2250; J0330; J1644 ×3; J1100; J2710; J0690; J2405; J2001; J2150; J3010; J2795; J2370; J2704; C9113 ×2; J1170; 86850; 86900; 86901

== ENCOUNTER → 2020-10-26 | Outpatient (CLI) | payer MEDICARE, BC ==
--- NOTE | 2020-10-26 09:05 | XR ---
EXAMINATION TYPE: XR chest 2V DATE OF EXAM: 10/26/2020 COMPARISON: 04/07/2020 HISTORY: 84-year-old male C64.9, kidney cancer TECHNIQUE: Frontal and lateral views FINDINGS: Heart normal size. Aorta and pulmonary vasculature are within normal limits. Mild hyperinflation. No consolidation or pleural effusion. IMPRESSION: COPD. No acute cardiopulmonary process.
== END | disposition home or self-care (01) ==
LOC: RADXRMAIN 07:16
PROVIDERS: ATTEND Urology
DX: C64.9 Malignant neoplasm of unspecified kidney, except renal pelvis (principal); J44.9 Chronic obstructive pulmonary disease, unspecified
CPT/HCPCS: 71046

== ENCOUNTER → 2021-10-26 | Outpatient (CLI) | payer MEDICARE, BC ==
--- NOTE | 2021-10-26 11:47 | XR ---
EXAMINATION TYPE: XR chest 2V DATE OF EXAM: 10/26/2021 10:23 AM COMPARISON: Chest radiographs from 10/26/2020 TECHNIQUE: XR chest 2V Frontal and lateral views of the chest. CLINICAL INDICATION:Male, 85 years old with history of C64 RENAL CANCER; FINDINGS: Lungs/Pleura: There is no evidence of pleural effusion, focal consolidation, or pneumothorax. No donaldo dence of pulmonary mass. Pulmonary vascularity: Unremarkable. Heart/mediastinum: Cardiomediastinal silhouette is unremarkable. Musculoskeletal: No acute osseous pathology. IMPRESSION: No acute cardiopulmonary disease/process.
== END | disposition home or self-care (01) ==
LOC: RADXRMAIN 10:06
PROVIDERS: ATTEND Internal Medicine
DX: C65.1 Malignant neoplasm of right renal pelvis (principal)
CPT/HCPCS: 71046

== ENCOUNTER → 2023-01-08 | Outpatient (CLI) | payer MEDICARE, BC ==
--- NOTE | 2023-01-09 21:21 | XR ---
EXAMINATION TYPE: XR chest 2V DATE OF EXAM: 01/08/2023 COMPARISON: 10/26/2021 INDICATION: Renal cell carcinoma TECHNIQUE: Frontal and lateral views of the chest are obtained. FINDINGS: The heart size is normal. The pulmonary vasculature is normal. The lungs are clear. Hyperinflation and flattening the diaphragms can be compatible with COPD IMPRESSION: 1. No acute pulmonary process. 2. COPD
== END | disposition home or self-care (01) ==
LOC: RADXRMAIN 16:40
PROVIDERS: ATTEND Urology
DX: J44.9 Chronic obstructive pulmonary disease, unspecified (principal); C64.1 Malignant neoplasm of right kidney, except renal pelvis
CPT/HCPCS: 71046

== ENCOUNTER → 2023-01-08 | Outpatient (CLI) | payer MEDICARE, BC ==
--- NOTE | 2023-01-09 09:57 | US ---
EXAMINATION TYPE: US kidneys/renal and bladder DATE OF EXAM: 01/08/2023 COMPARISON: Ultrasound 04/13/2017 CLINICAL INDICATION: Male, 87 years old with history of C64.1 MALIGNANT NEOPLASM OF RIGHT KIDNEY; Pat ient states having a malignant lesion removed from right kidney. Hx renal cysts and calcifications. EXAM MEASUREMENTS: Right Kidney: 11.8 x 5.5 x 4.9 cm Left Kidney: 11.9 x 5.0 x 6.6 cm Right Kidney: Upper pole lateral echogenic lesion = 3.2 x 2.8 x 2.7 cm. Multiple subcentimeter cysti c appearing lesions, largest mid inferior = 1.2 x 1.1 x 1.0 cm Left Kidney: Multiple cystic appearing lesions seen. Lateral inferior hypoechoic lesion = 2.5 x 2.5 x 2.0 cm. Mid mid anechoic lesion = 2.0 x 2.1 x 1.8 cm with posterior echogenic focus and twinkling artifact = 0.7 cm. Lower pole echogenic focus with shadowing = 1.2 cm. Bladder: Distended, anechoic. Wall thickening = 0.7 cm Left jet seen IMPRESSION: 1. Masslike area in the right upper kidney. Further evaluation with CT or MRI renal mass protocol re commended. 2. Additional bilateral probable renal cysts. 3. No evidence for obstructive uropathy.
== END | disposition home or self-care (01) ==
LOC: RADUSWWP 16:02
PROVIDERS: ATTEND Urology
DX: C64.1 Malignant neoplasm of right kidney, except renal pelvis (principal); N28.89 Other specified disorders of kidney and ureter
CPT/HCPCS: 76770

== ENCOUNTER → 2024-05-06 | Outpatient (CLI) | payer MEDICARE, BC ==
--- NOTE | 2024-05-06 12:11 | XR ---
EXAMINATION TYPE: XR chest 2V DATE OF EXAM: 05/06/2024 CLINICAL INDICATION: Male, 88 years old with history of C64, TECHNIQUE: Frontal and lateral views of the chest are obtained. COMPARISON: Chest x-ray January 08, 2023 FINDINGS: Underlying emphysematous change is felt present. There is no focal air space opacity, pleu ral effusion, or pneumothorax seen. The cardiac silhouette size is within normal limits. The osseo us structures are intact. IMPRESSION: No acute cardiopulmonary process. [facility], , 05/06/2024 12:09 PM
== END | disposition home or self-care (01) ==
LOC: RADXRMAIN 11:34
PROVIDERS: ATTEND Urology
DX: C64.9 Malignant neoplasm of unspecified kidney, except renal pelvis (principal); J43.9 Emphysema, unspecified
CPT/HCPCS: 71046